=== PATIENT | male | born 1980 | race Caucasian/White ===

== ENCOUNTER 2020-05-15 03:57 | Observation (INO) | payer BC, SELFPAY ==
[2020-05-15] VITALS (15 sets, daily range): BP systolic 113–178; BP diastolic 49–86; PULSE 46–88; RESP 14–18; TEMP 36.4–37; O2SAT 94–100; BMI 25.8
--- NOTE | 2020-05-15 04:47 | CTR_ITS ---
PROCEDURE INFORMATION: Exam: CT Abdomen And Pelvis Without Contrast Exam date and time: 05/15/2020 4:58 AM Age: 39 years old Clinical indication: Abdominal pain; Flank; Right; Additional info: R flank pain TECHNIQUE: Imaging protocol: Computed tomography of the abdomen and pelvis without contrast. Radiation optimization: All CT scans at this facility use at least one of these dose optimization techniques: automated exposure control; mA and/or kV adjustment per patient size (includes targeted exams where dose is matched to clinical indication); or iterative reconstruction. COMPARISON: No relevant prior studies available. RADIATION DOSE METRICS: Total DLP (mGy-cm): 1142.93 FINDINGS: Liver: Normal. No mass. Gallbladder and bile ducts: Normal. No calcified stones. No ductal dilation. Pancreas: Normal. No ductal dilation. Spleen: Normal. No splenomegaly. Adrenals: Normal. No mass. Kidneys and ureters: There are 2 nonobstructing right renal calculi present, the largest measuring 3.5 mm. There is mild ureterectasis present on the right. Subtle haziness seen along the serosal margin of the right ureter as well compatible with mild inflammatory changes. There is no evidence of obstructing ureteral calculus. However, there is a punctate 1.9 mm calculus present in the dependent portion of the bladder compatible with a recently passed ureteral calculus. Stomach and bowel: Fluid-filled nondilated loops of small bowel could represent mild ileus. Appendix: The appendix is abnormally enlarged measuring 12.1 mm in diameter. There is some thickening of the appendiceal wall present as well. Minimal fat stranding is seen within the appendiceal mesentery. These findings could represent appendicitis. However the appendix is gas-filled, finding often suggesting a benign appendix. The appendix is retrocecal. Intraperitoneal space: Unremarkable. No free air. No significant fluid collection. Vasculature: Unremarkable. No abdominal aortic aneurysm. Lymph nodes: Unremarkable. No enlarged lymph nodes. Bladder: See Kidneys and ureters finding. Reproductive: Unremarkable as visualized. Bones/joints: Unremarkable. No acute fracture. Soft tissues: Unremarkable. CT/CT kidney stone [id number] IMPRESSION: 1. There is mild right ureterectasis and some haziness seen along the right ureter suggesting mild inflammatory changes. There is no evidence for obstructing right ureteral calculus however, there is a 1.9 mm calculus present in the dependent portion bladder possibly representing a recently passed ureteral calculus. 2. The appendix is in a retrocecal location and appears abnormally dilated measuring up to 12.1 mm in diameter. There is some mild wall thickening seen within the appendix. Mild thickening of the adjacent lateral conal fascia and some haziness within the appendiceal mesentery is present. These findings could represent mild appendicitis. However, the appendix is gas-filled, finding that often suggests a benign appendix. Clinical correlation is suggested. Radiation Dose CTDIVOL = (mGy): DLP = 1142.93 (mGy-cm)
[2020-05-15 05:30] LABS: Add Urine Microscopic? YES; Bilirubin Urine Neg (NEGATIVE); Blood Urine 3+ (Negative); Glucose Urine UA Norm (Normal); Ketones Urine 1+ (Negative); Leukocyte Esterase Urine 2+ (Negative); Nitrate Urine Negative (Negative); Protein Urine Trace (Negative); Specific Gravity, Urine 1.015 (1.005-1.030); Urine Color Yellow (Yellow); Urobilinogen Urine Norm (Negative); pH Urine 5 (5-7)
--- NOTE | 2020-05-15 05:33 | ED_ITS ---
HPI - Back Pain/Injury General: Chief Complaint: Back Pain/Injury Stated Complaint: KIDNEY STONE Time Seen by Provider: 05/15/20 04:18 History of Present Illness: HPI Narrative: 39-year-old male with a history of kidney stone. He presents with acute onset right flank pain a couple of days ago. He states that his pain is been intermittent. He experienced pain on Sunday, followed by a sensation of passing a stone with relief in his symptoms. The same thing happened , and again this morning. His pain was most severe this morning with 3 episodes of vomiting before his pain began to improve. Currently, his pain is significantly improved. He is not had a fever. He has had no diarrhea. MD elicited complaint: back pain Pertinent past history: other Onset (ago): day(s) Timing: intermittent Severity: severe Similar Symptoms Previously: Yes Quality: stabbing and aching Location: right flank Radiation: none Exacerbating factors: none Relieving factors: none Associated symptoms: Reports abdominal pain, nausea and vomiting; Deny dysuria, fever(s), hematuria or urinary frequency Review of Systems Const: Denies: fever(s) Eyes: Denies: change in vision or blurry vision ENMT: Denies: swelling of lips/tongue Card: Denies: chest pain, palpitations or irregular heart rhythm Resp: Denies: dyspnea, productive cough, non-productive cough or wheezing GI: Reports: abdominal pain, nausea and vomiting : Denies: difficulty urinating, dysuria or hematuria Musc: Reports: back pain; Denies: neck pain Skin/Breast: Denies: rash, pruritus or erythema Neuro: Denies: headache(s), dizziness or vertigo Psych: Denies: anxiety Physical Exam Const: GENERAL APPEARANCE: well developed ORIENTATION/CONSCIOUSNESS: Yes oriented to person, Yes oriented to place and Yes oriented to time HENMT: COMMON NORMALS: normocephalic, external ears normal and Normal external nose present HEAD & SCALP: normocephalic FACE & SINUS: normal facial exam NOSE: Normal external nose present and No nasal discharge present EXTERNAL EAR: Yes external ears normal Eye: COMMON NORMALS: Equal, round and reactive pupils present, EOMs intact bilaterally and conjunctivae normal EYELID: eyelids normal CONJUNCTIVA: Yes conjunctivae normal PUPIL: Yes Equal, round and reactive pupils present Neck/C-Spine: GENERAL: No tracheal deviation Chest: COMMONS NORMALS: normal inspection of the chest CHEST: No tenderness Resp: COMMON NORMALS: clear to auscultation bilaterally EFFORT & INSPECTION: No tachypneic, No respiratory distress, No retractions, No uses accessory muscles and No tracheal deviation AUSCULTATION: clear to auscultation bilaterally, no rhonchi, no wheezes and lung sounds not diminished Cardio: COMMON NORMALS: regular rate and regular rhythm RATE: regular rate RHYTHM: regular rhythm HEART SOUNDS: no murmurs PERIPHERAL PULSES: radial pulses present GI: INSPECTION: No abdominal distension AUSCULTATION: No Hyperactive bowel sounds present and No Hypoactive bowel sounds present PALPATION: No Guarding due to palpation present (GI) and No Rigid due to palpation PERCUSSION: no dullness to percussion and no tympanic to percussion : BLADDER/KIDNEY EXAM: Yes CVA tenderness on the right Back/Pelvis: GENERAL BACK: Yes CVA tenderness Neuro: SENSORIUM/ORIENTATION: Yes oriented to person, Yes oriented to place and Yes oriented to time Psych: COMMON NORMALS: mental status grossly normal Skin: COMMON NORMALS: no rashes or lesions noted GENERAL SKIN EXAM: no rashes or lesions noted Course Vital Signs: Vital signs: Vital Signs Temperature 97.8 F 05/15/20 04:01 Pulse Rate 46 L 05/15/20 05:28 Respiratory Rate 14 05/15/20 05:28 Blood Pressure 120/84 05/15/20 05:28 Pulse Oximetry 99 05/15/20 05:28 MDM - Back Pain/Injury MDM Narrative: Medical decision making narrative: 39-year-old with right flank pain for 3 days. Relief on arrival to his room. Urinalysis performed first shows greater than 100 RBCs, but also greater than 100 WBCs. 2+ leukocyte esterase. CT scan reveals a 1.9 mm stone in his bladder with no obstructive uropathy. Interestingly, he also has a 12 mm dilated appendix with periappendiceal inflammation present. He has inflammation around his kidney on the right as well. This patient has both pyelonephritis and appendicitis as well as a stone in his bladder. Consulted surgery, the plan is to do an appendectomy this morning, he is asking for hospitalist consultation to manage pyelonephritis. Hospitalist notified. He was at first given Rocephin here. Now he is given Zosyn to treat both. Lab Data: Labs: Lab Results 05/15/20 Range/Units 04:15 Urine Color Yellow (Yellow) Urine Appearance Sl cloudy A (CLEAR) Urine pH 5 (5-7) Ur Specific Gravit y 1.015 (1.005-1.030) Urine Protein Trace (Negative) Urine Glucose (UA) Norm (Normal) Urine Ketones 1+ H (Negative) Urine Blood 3+ H (Negative) Urine Nitrate Negative (Negative) Urine Bilirubin Neg (NEGATIVE) Urine Urobilinogen Norm (Negative) mg/dL Ur Leukocyte Amparo ase 2+ H (Negative) Urine RBC >100 H (0-2) /hpf Urine WBC >100 H (0-5) /hpf Ur Squamous Epith Cells 5-10 H (0-5) Amorphous Sediment 2+ Urine Bacteria 2+ H (NONE) Discharge Plan Discharge Patient Disposition: Admitted As Inpatient Clinical Impression: Acute pyelonephritis, History of nephrolithiasis Acute appendicitis Qualifiers: Acute appendicitis type: with localized peritonitis Appendicitis gangrene presence: without gangrene Appendicitis perforation presence: without perforati on Appendicitis abscess presence: without abscess Qualified Code(s): K35.30 - Acute appendicitis with localized peritonitis, without perforation or gangrene Condition: Stable Referrals: Dylan Lobato FNP [Primary Care Provider] - Coding Level of Care Code ED Clinical Tech for g Fwd Exam Comprehensive
[2020-05-15 05:34] LABS: Add Urine Culture? Yes; Amorphous Sediment Urine 2+; Bacteria Urine 2+; RBC Urine >100 /hpf (0-2); WBC Urine >100 /hpf (0-5)
[2020-05-15] MEDS: sodium chloride 0.9% 1,000 ML 999 ML IV (05:45)
[2020-05-15] MEDS: cefTRIAXone 1,000 MG in sodium chloride 0.9% (plus) 50 ML 100 MG IV (05:45)
[2020-05-15 06:42] LABS: Basophils % 0.4 %; Eosinophils % 0.3 %; Hematocrit 41.1 % (42.0-52.0); Hemoglobin 13.3 g/dL (11.7-16.6); Lymphocytes # 1.3 10^3/uL (0.8-4.8); Lymphocytes % 12.4 %; Mean Corpuscular HGB Conc 32.4 g/dL (30.0-36.0); Mean Corpuscular Hemoglobin 29.5 pg (28.0-34.0); Mean Corpuscular Volume 91.1 fL (80-94); Mean Platelet Volume 10.8 fL (7.4-10.4); Monocytes # 0.9 10^3/uL (0.2-0.9); Monocytes % 8.4 %; Neutrophils # 8.18 10^3/uL (1.8-7.7); Neutrophils % 78.3 %; Nucleated Red Blood Cells % 0 %; Platelet Count 182 10^3/cmm (130-400); Red Blood Count 4.51 10^6/uL (4.1-5.3); Red Cell Distribution Width 12.3 % (12.1-15.1); White Blood Count 10.4 10^3/uL (4.0-10.0)
--- NOTE | 2020-05-15 06:52 | PM.HP ---
Providers/Chief Complaint Primary Care Provider: LIU Downs Chief Complaint: KIDNEY STONE History of Present Illness Chief Complaint: Abdominal pain History of present illness: Mr Ronal Rojas is a 39 year old male presents to the emergency department with right flank and suprapubic pain patient has been experiencing pain since last Sunday thinking that it is another stone which she has been having frequent episodes of passing stones, patient reports nausea and vomiting but no fevers chills or change in bowel habits, and he reports the change in urination has been chronic for him due to the history of chronic kidney stones. Patient was further evaluated in the emergency department and was found to have leukocytosis and a CT scan that demonstrated acute appendicitis apart from inflammatory changes towards the right ureter. CT scan of the abdomen and pelvis showed; FINDINGS: Liver: Normal. No mass. Gallbladder and bile ducts: Normal. No calcified stones. No ductal dilation. Pancreas: Normal. No ductal dilation. Spleen: Normal. No splenomegaly. Adrenals: Normal. No mass. Kidneys and ureters: There are 2 nonobstructing right renal calculi present, the largest measuring 3.5 mm. There is mild ureterectasis present on the right. Subtle haziness seen along the serosal margin of the right ureter as well compatible with mild inflammatory changes. There is no evidence of obstructing ureteral calculus. However, there is a punctate 1.9 mm calculus present in the dependent portion of the bladder compatible with a recently passed ureteral calculus. Stomach and bowel: Fluid-filled nondilated loops of small bowel could represent mild ileus. Appendix: The appendix is abnormally enlarged measuring 12.1 mm in diameter. There is some thickening of the appendiceal wall present as well. Minimal fat stranding is seen within the appendiceal mesentery. These findings could represent appendicitis. However the appendix is gas-filled, finding often suggesting a benign appendix. The appendix is retrocecal. Intraperitoneal space: Unremarkable. No free air. No significant fluid collection. Vasculature: Unremarkable. No abdominal aortic aneurysm. Lymph nodes: Unremarkable. No enlarged lymph nodes. Bladder: See Kidneys and ureters finding. Reproductive: Unremarkable as visualized. Bones/joints: Unremarkable. No acute fracture. Soft tissues: Unremarkable. CT/CT kidney stone [id number] IMPRESSION: 1. There is mild right ureterectasis and some haziness seen along the right ureter suggesting mild inflammatory changes. There is no evidence for obstructing right ureteral calculus however, there is a 1.9 mm calculus present in the dependent portion bladder possibly representing a recently passed ureteral calculus. 2. The appendix is in a retrocecal location and appears abnormally dilated measuring up to 12.1 mm in diameter. There is some mild wall thickening seen within the appendix. Mild thickening of the adjacent lateral conal fascia and some haziness within the appendiceal mesentery is present. These findings could represent mild appendicitis. However, the appendix is gas-filled, finding that often suggests a benign appendix. Clinical correlation is suggested. General surgery was consulted for further evaluation and potential intervention Review of Systems General: Reports: 10 or more systems reviewed and unremarkable except in HPI and below Medications/Allergies Home Medications Medication Instructions Recorded Confirmed Last Taken Type sumatriptan succinate 100 mg tablet See Rx Instructions PO .COMPLEX 11/07/19 Unknown Rx #60 tab Allergies Allergy/AdvReac Type Severity Reaction Status Date / Time No Known Allergies Allergy Verified 05/15/20 07:21 Vitals/I&O/Wt Last Vital Signs Temp 97.8 F 05/15/20 04:01 Pulse 46 L 05/15/20 05:28 Resp 14 05/15/20 05:28 BP 120/84 05/15/20 05:28 Pulse Ox 99 05/15/20 05:28 Weight last 48 hrs Weight 175 lb Physical Exam Narrative: EXAM NARRATIVE: Patient is conscious alert oriented X3 BMI 26 Head and neck examination PERRLA no masses no cervical lymphadenopathy no jaundice Cardiac examination audible S1-S2 no murmurs no gallops no arrhythmias Chest is clear bilateral,abscence of Rhonchi or wheezes,no surgical emphysema Abdomen mild tenderess over the right lower quadrant nondistended soft no organomegaly guarding or rigidity/no signs of peritonitis Extremities no cyanosis no clubbing no edema Data : 05/15/20 06:34 05/15/20 06:34 A&P Assessment and plan (1) Acute appendicitis: After thorough history physical examination and reviewing the chart and images with my personal interpretion, I counseled the patient for laparoscopic appendectomy possible open. Indications, risks, benefits and alternatives were all discussed with the patient and did agree to proceed. Rationale was carefully and clearly discussed with the patient.Appropriate informed consent have been reviewed and signed Status: Acute Qualifiers: Acute appendicitis type: with localized peritonitis Appendicitis abscess presence: without abscess Appendicitis gangrene presence: without gangrene Appendicitis perforation presence: without perforation Qualified Code(s): K35.30 - Acute appendicitis with localized peritonitis, without perforation or gangrene (2) Acute pyelonephritis: Will defer to management of pyelonephritis to the hospitalist service Status: Acute Attestations Medical Necessity Statement*: Observation Time Spent in Patient Care: (>than 50% of time spent in counselling and/or direct pt care on unit). Coding Level of Care Code Acute Order Builder for [facility] Fwd Diagnoses Acute appendicitis K35.30 Acute appendicitis type: with localized peritonitis Appendicitis abscess presence: without abscess Appendicitis gangrene presence: without gangrene Appendicitis perforation presence: without perforation Acute pyelonephritis N10
[2020-05-15] MEDS: piperacillin-tazobactam 3.375 GM in sodium chloride 0.9% (plus) 50 ML IV ×3 (06:58→21:42)
[2020-05-15 07:04] LABS: Alanine Aminotransferase 11 U/L (0-41); Albumin Level 4.3 g/dL (3.5-5.2); Alkaline Phosphatase 61 IU/L (40-130); Anion Gap 13.4 (5-19); Aspartate Amino Transferase 13 U/L (0-40); Blood Urea Nitrogen 12 mg/dL (6-20); C Reactive Protein 76.9 mg/L (0.0-4.9); Calcium 8.9 mg/dL (8.5-10.5); Carbon Dioxide 27 mmol/L (22-29); Chloride 104 mmol/L (98-107); Globulin 2.7 g/dL (1.3-4.6); Glomerular Filtration Rate 82.8 mL/min (90-130); Glucose 101 mg/dL (65-115); Lipase 12 U/L (13-60); Osmolality Calculated 286 mOsm/kg (285-295); Potassium 4.4 mmol/L (3.5-5.1); Sodium 140 mmol/L (136-145); Total Bilirubin 0.9 mg/dL (0.15-1.2)
--- NOTE | 2020-05-15 07:05 | PC.NURSE ---
Received report assumed care. No acute distress. No changes noted from report. Rx and fluids infusing. at bedside.
--- NOTE | 2020-05-15 08:39 | P.ANESASSM_ITS ---
Pre-Anesthetic Assessment Pre-Anesthetic Assessment: Height/Weight: Height 1.75 m Weight 79.379 kg Temp Pulse Resp BP Pulse Ox 98.3 F 57 L 18 113/49 100 05/15/20 07:03 05/15/20 07:03 05/15/20 07:03 05/15/20 07:03 05/15/20 07:03 Proposed Procedure: Operation Date: 05/15/20 10:00 Proposed Procedures p Appendectomy(Not Applicable) - Magnus Duarte MD Was Beta Walt taken within 24 hours: N/A Social: Social History: No alcohol and No tobacco Exam: Pre-Anes Outpt Exam: alert, oriented x 3, clear to auscultation bilaterally and regular rate & rhythm Airway: Submandibular: WNL Cervical ROM: WNL MP: 2 Dentition: Full History/ROS: No significant history except as noted Pulmonary: Pulmonary: None reported CV/HEM: CV/HEM: None reported : : None reported Hepatic: Hepatic: None reported GI: GI: None reported Metabolic: Metabolic: None reported Musc/skel: Musc/skel: None reported Neuropsych: Neuropsych: None reported Anesthetic Plan: ASA status: 1 Anesthesia: General Other: Mod RSI Risk of > 500 ml blood loss (7ml/kg in children): No Data Anesthesia CBC & Chem 7: 05/15/20 06:34 05/15/20 06:34 Other Labs: Laboratory Results - last 48 hr 05/15/20 05/15/20 05/15/20 04:15 06:34 06:34 WBC 10.4 H RBC 4.51 Hgb 13.3 Hct 41.1 L MCV 91.1 MCH 29.5 MCHC 32.4 RDW 12.3 Plt Count 182 MPV 10.8 H Neut % (Auto) 78.3 Lymph % (Auto) 12.4 [place] % (Auto) 8.4 Eos % (Auto) 0.3 Baso % (Auto) 0.4 Neut # (Auto) 8.18 H Lymph # (Auto) 1.3 [place] # (Auto) 0.9 Eos # (Auto) 0.0 Baso # (Auto) 0.0 Nucleated RBC % (auto) 0 Nucleated RBCs # 0.0 Sodium 140 Potassium 4.4 Chloride 104 Carbon Dioxide 27 Anion Gap 13.4 BUN 12 Creatinine 1.0 GFR Calculation 82.8 L Glucose 101 Calculated Osmolality 286 Calcium 8.9 Total Bilirubin 0.9 AST 13 ALT 11 Alkaline Phosphatase 61 C-Reactive Protein 76.9 H Total Protein 7.0 Albumin 4.3 Globulin 2.7 Lipase 12 L Urine Color Yellow Urine Appearance Sl cloudy A Urine pH 5 Ur Specific [place] 1.015 Urine Protein Trace Urine Glucose (UA) Norm Urine Ketones 1+ H Urine Blood 3+ H Urine Nitrate Negative Urine Bilirubin Neg Urine Urobilinogen Norm Ur Leukocyte Esterase 2+ H Urine RBC >100 H Urine WBC >100 H Ur Squamous Epith Cells 5-10 H Amorphous Sediment 2+ Urine Bacteria 2+ H Cardiac Studies: No Data to Display
[2020-05-15] MEDS: lidocaine 2% INJ 20 mL INJECTION (10:19)
--- NOTE | 2020-05-15 11:04 | PM.OP ---
Operative Report Date of procedure: May 15, 2020 Pre-op Diagnosis: Acute appendicitis Post-op diagnosis: same Post-op Findings: Acute retrocecal intensely inflamed appendicitis without perforation Procedure Done: Laparoscopic appendectomy Specimens removed/disposition: Appendix Surgeon: Magnus Duarte Supervisor Print Line: Surgical mario Farr nurse Chani Anesthesia: General (GETA) Estimated blood loss (mL): 25 Condition: stable Disposition: observation Brief History: This is a pleasant 39 years old gentleman with history of acute appendicitis After thorough history physical examination and reviewing the chart and images with my personal interpretion, I counseled the patient for laparoscopic appendectomy possible open. Indications, risks, benefits and alternatives were all discussed with the patient and did agree to proceed. Rationale was carefully and clearly discussed with the patient.Appropriate informed consent have been reviewed and signed Procedure: Patient after being identified in the holding area and asked to void urine, and informed consent per chart ,patient was then taken back to the OR placed in supine position got intubated by anesthesia left arm was tucked tucked ,Timeout was done verifying the patient's name/date of /planned procedure and destination after the procedure, all were in agreement., preoperative antibiotics administered per protocol. prep and drape of the abdomen was done under the usual sterile technique. Started by longitudinal skin incision supraumbilical using a Roblero trocar technique safe entry to the abdominal cavity was achieved verified by using 10 mm zero degree laparoscopy, switched to a 30? scope under direct visualization a suprapubic 5 mm trocar was inserted followed by another 5 mm trocar inserted in the left lower quadrant, I was able to position the patient in an T Huang and left side down, dissection of the prececal acutely inflamed appendix there was some adhesions towards the lateral pelvic wall that was taken down by sharp and blunt dissection, attention was deviated to the healthy base of the appendix where I had to switch the camera to 5 mm 30? scope got introduced through the left lower quadrant and through the Roblero trocar under direct visualization a GI stapler 45 mm blue load was applied at the healthy part of the base of the appendix, and an Endoloop PDS was applied onto the mesoappendix for control , the appendix was then retrieved in an Endo Catch bag, final survey was done of the abdomen and pelvis , irrigation with warm saline, and suction was obtained, were mercury fluid like in the pelvis due to reaction from the inflamed appendix. 5 mm clips were applied onto the mesoappendix as well as the appendectomy staple line and a right lateral pelvic wall for minimal oozing. Final look laparoscopy was done showing no other abnormalities or injuries, all trocars were taken out under direct visualization after the supraumblical trocar site was closed by 0 Vicryl sutures under direct vision using fascial closure device ,followed by skin closure using 4-0 Monocryl of all trocar site incisions. infiltration of local lidocaine 2% was done to all incision sites.Dry dressing was applied. Count was completed at the end of the procedure for [place] , sponges and instruments Patient tolerated the procedure well and was transferred to the recovery area after extubation. I was present for the whole entire procedure
[2020-05-15] MEDS: fentaNYL 50 mcg/mL INJ 2mL IVP ×2 (11:25→11:30)
--- NOTE | 2020-05-15 12:18 | PM.PACU ---
PACU note PACU note: VSS, good pain control. Post-Anesthesia Exam: awake Disposition: back to floor
[2020-05-15] MEDS: HYDROcodone-acetaminophen 5-325 mg Tablet 1 TAB PO ×2 (12:26→20:15)
[2020-05-15] MEDS: sodium chloride 0.9% 1,000 ML 100 ML IV (13:54)
[2020-05-15] MEDS: morphine 4 mg/mL SDV 1 mL 2 MG IVP (16:01)
--- NOTE | 2020-05-15 16:44 | P.PN_ITS ---
Vitals/I&O/Wt Last Vital Signs Temp 97.6 F 05/15/20 11:35 Pulse 60 05/15/20 11:35 Resp 18 05/15/20 16:01 BP 145/84 05/15/20 11:35 Pulse Ox 99 05/15/20 11:35 05/15/20 05/15/20 05/15/20 06:59 14:59 22:59 Intake Total 0 / 0 Output Total 320 / 320 200 / 520 Balance -320 / -320 -200 / -520 Weight last 48 hrs Weight 79.379 kg Data : 05/15/20 06:34 05/15/20 06:34 Coding Level of Care Code Acute Batch Tank Controller for [facility]
--- NOTE | 2020-05-15 17:07 | PM.CONSULT ---
Providers/Reason For Consult Consulting Physican/Specialty*: Indira Aviles MD /Internal medicine Reason for Consult*: Possible pyelonephritis. Attending Physician: Magnus Duarte MD Primary Care Provider: LIU Downs History of Present Illness History of Present Illness Ronal Rojas is a 39 year old male with past medical history of migraine and nephrolithiasis who presented to the ER with chief complaint of abdominal pain and nausea vomiting. He was found to have evidence of acute appendicitis on CAT scan for which he was taken to the OR and is now status post laparoscopic appendectomy.. There was also noted to be mild right ureterectasis and some haziness seen along the right ureter suggesting mild inflammatory changes. There is no evidence for obstructing right ureteral calculus however, there is a 1.9 mm calculus present in the dependent portion bladder possibly representing a recently passed ureteral calculus. Patient otherwise denies any symptoms of dysuria , frequency, fever. There is no CVA tenderness on exam. Patient is seen postoperatively. He has remained afebrile since admission. Currently on empiric treatment with IV Zosyn. Review of Systems General: Reports: 10 or more systems reviewed and unremarkable except in HPI and below Const: Denies: fever(s), chills or body aches Eyes: Denies: change in vision, blurry vision or photophobia ENMT: Reports: hoarseness; Denies: throat pain, enlarged tonsils, odynophagia or nasal congestion Card: Denies: chest pain, palpitations, irregular heart rhythm, edema, swelling of feet/ankles, lightheadedness, pre-syncope, dyspnea on exertion or orthopnea Resp: Denies: dyspnea, productive cough, non-productive cough, wheezing, stridor, pain on inspiration, change in phlegm color, hemoptysis or chest congestion GI: Denies: abdominal pain, nausea, vomiting, hematemesis, coffee ground emesis, dysphagia, heartburn, diarrhea, constipation, GI cramping, change in stool character, hematochezia or melena : Denies: flank pain, dysuria, urinary frequency, urinary urgency, urinary hesitancy or hematuria Musc: Denies: neck pain, back pain, extremity pain, joint swelling, joint warmth or deformity Neuro: Denies: headache(s), numbness in extremities, weakness in extremities, sensory changes, difficulty walking, frequent falls, dizziness, vertigo, behavioral changes, Slurred speech present or seizure-like activity Psych: Denies: anxiety, depression, suicidal ideation or homicidal ideation Endo: Denies: polyuria, polydipsia, tired all the time, cold intolerance or hot flashes Fredrick/Lymph: Denies: easy bruising or easy bleeding Meds/Allergies Home Medications and Allergies Home Medications Medication Instructions Recorded Confirmed Last Taken Type sumatriptan succinate 100 mg tablet See Rx Instructions PO .COMPLEX 11/07/19 05/16/20 Unknown Rx #60 tab multivitamin [Multiple Vitamins] 1 tab PO DAILY 05/16/20 05/16/20 Unknown History Allergies Allergy/AdvReac Type Severity Reaction Status Date / Time No Known Allergies Allergy Verified 05/16/20 09:51 Current Medications Current Medications Generic Name Dose Route Start Last Admin Trade Name Freq PRN Reason Stop Dose Admin Hydrocodone Bitart/Acetaminophen 1 tab 05/15/20 11:07 05/16/20 13:37 [place] 5-325 Mg PO 1 tab Q6H PRN Administration MODERATE PAIN Sodium Chloride 1,000 mls @ 100 mls/hr 05/15/20 11:15 05/16/20 09:15 Sodium Chloride 0.9% IV 100 mls/hr .Q10H HARDIK Administration Piperacillin Sod/Tazobactam 50 mls @ 12.5 mls/hr 05/15/20 14:00 05/16/20 13:37 Sod 3.375 gm/ Sodium Chloride IV 12.5 mls/hr Q8H HARDIK Administration Protocol Morphine Sulfate 2 - 4 mg 05/15/20 17:36 05/16/20 03:01 Morphine IVP 2 mg Q2H PRN Administration SEVERE PAIN Ondansetron HCl 4 mg 05/15/20 11:07 05/16/20 13:36 Zofran IVP 4 mg Q4H PRN Administration NAUSEA AND VOMITING Simethicone 80 mg 05/16/20 05:41 05/16/20 05:51 Mylicon Tab PO 80 mg QID PRN Administration FLATULENCE Vitals/I&O/Wt Last Vital Signs Temp 98.3 F 05/16/20 15:32 Pulse 62 05/16/20 15:32 Resp 18 05/16/20 15:32 BP 154/79 05/16/20 15:32 Pulse Ox 97 05/16/20 15:32 05/16/20 05/16/20 05/16/20 06:59 14:59 22:59 Intake Total 1450 / 1840 921.667 / 921.667 Output Total 905 / 3155 1000 / 1000 500 / 1500 Balance 545 / -1315 -78.333 / -78.333 -500 / -578.333 Weight last 48 hrs Weight 79.379 kg Physical Exam Narrative: EXAM NARRATIVE: GEN: Awake, alert and oriented, no acute distress CVS: S1S2 N RS: CTA B/L Abd: Soft, mildly distended, no tenderness 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 Micro: Micro: Microbiology 05/15/20 04:15 Urine Culture - Pr eliminary Urine,Clean Catch Imaging^: CT Abd/Pel: Radiologist's impression: CT/CT kidney stone [id number] IMPRESSION: 1. There is mild right ureterectasis and some haziness seen along the right ureter suggesting mild inflammatory changes. There is no evidence for obstructing right ureteral calculus however, there is a 1.9 mm calculus present in the dependent portion bladder possibly representing a recently passed ureteral calculus. 2. The appendix is in a retrocecal location and appears abnormally dilated measuring up to 12.1 mm in diameter. There is some mild wall thickening seen within the appendix. Mild thickening of the adjacent lateral conal fascia and some haziness within the appendiceal mesentery is present. These findings could represent mild appendicitis. However, the appendix is gas-filled, finding that often suggests a benign appendix. Clinical correlation is suggested. A&P Additional A&P Information 39-year-old male with past medical history of migraine and nephrolithiasis currently presenting to the hospital with abdominal pain nausea and vomiting. Found to have evidence of acute appendicitis and status post laparoscopic appendectomy. Incidental note made of right-sided uric stasis and surrounding mild inflammation with small bladder stone, which appears to be consistent with a recently passed stone. Clinically patient does not have any acute signs or symptoms of pyelonephritis. He does not have CVA tenderness. He has been afebrile since his admission here. Does not have any urinary symptoms of urgency, burning at this present time. There is an alternate explanation for his symptoms by way of acute appendicitis which is now been surgically treated. Clinically does not appear to have pyelonephritis, however given that his UA is showing WBCs and positive leuk esterase, it would be reasonable to treat him with a 5 to 7-day course of empiric antibiotics if urine cultures remain negative. Currently Zosyn is an appropriate choice which will cover for both urinary and abdominal sources of infection. Upon discharge this may be transitioned to oral fluoroquinolones, either levofloxacin 750 mg p.o. daily or Cipro 500 mg twice daily. Recommend outpatient follow-up with urology for nephrolithiasis Coding Level of Care Code Acute Metal Buffer for Tiffanie Romero
[2020-05-15] MEDS: ondansetron 2 mg/ML SDV 2 mL 4 MG IVP ×2 (17:57→21:52)
--- NOTE | 2020-05-15 18:18 | PC.NURSE ---
SHIFT SUMMARY PATIENT HAS COMPLAINED OF ABDOMINAL PAIN SINCE ARRIVING TO THE FLOOR FROM SURGERY. HE HAS AMBULATED SEVERAL TIMES. PATIENT HAD ONE BOUT OF EMESIS. DR. PANDYA INCREASED PAIN MEDICATION AND ADDED OFFIRMEV. PATIENT CURRENTLY SITTING ON THE EDGE OF THE BED.
[2020-05-15] MEDS: morphine 4 mg/mL SDV 1 mL IVP (21:53)
[2020-05-16] VITALS (8 sets, daily range): BP systolic 140–168; BP diastolic 66–95; PULSE 47–62; RESP 17–20; TEMP 36.7–37.1; O2SAT 97–99
[2020-05-16] MEDS: morphine 4 mg/mL SDV 1 mL IVP ×2 (00:31→03:01)
[2020-05-16] MEDS: sodium chloride 0.9% 1,000 ML 100 ML IV ×3 (00:32→19:43)
[2020-05-16] MEDS: ondansetron 2 mg/ML SDV 2 mL 4 MG IVP ×3 (02:31→21:03)
[2020-05-16 04:56] LABS: Basophils % 0.2 %; Eosinophils % 0.1 %; Hematocrit 40.1 % (42.0-52.0); Hemoglobin 13.5 g/dL (11.7-16.6); Lymphocytes # 1.3 10^3/uL (0.8-4.8); Lymphocytes % 10.8 %; Mean Corpuscular HGB Conc 33.7 g/dL (30.0-36.0); Mean Corpuscular Hemoglobin 30.6 pg (28.0-34.0); Mean Corpuscular Volume 90.9 fL (80-94); Mean Platelet Volume 10.8 fL (7.4-10.4); Monocytes # 0.9 10^3/uL (0.2-0.9); Monocytes % 7.2 %; Neutrophils % 81.2 %; Nucleated Red Blood Cells % 0 %; Platelet Count 200 10^3/cmm (130-400); Red Blood Count 4.41 10^6/uL (4.1-5.3); Red Cell Distribution Width 12.4 % (12.1-15.1); White Blood Count 12.3 10^3/uL (4.0-10.0)
--- NOTE | 2020-05-16 05:08 | PC.NURSE ---
SHIFT SUMMARY Has been uncomfortable much of the night. Had c/o abd pain and nausea. Vomited after having po Hydrocodone for pain and says made him sick earlier in day as well. Received IV Morphine for pain with much better relief. Also has received Zofran for nausea and IV Tylenol for pain as well. c/o gas discomfort across upper abdomen and bloating.. Has not been able to pass any flatus. Has ambulated in [place] several times. Voiding per urinal. Has taken clear liquid diet. X3 stab incisions to medial umbilicus, medial lower and left lower abdomen all DECISION SUPPORT ANALYST with dermabond closure.
[2020-05-16 05:21] LABS: Anion Gap 14.3 (5-19); Blood Urea Nitrogen 8 mg/dL (6-20); Calcium 9.1 mg/dL (8.5-10.5); Carbon Dioxide 27 mmol/L (22-29); Chloride 100 mmol/L (98-107); Glomerular Filtration Rate 93.5 mL/min (90-130); Glucose 134 mg/dL (65-115); Osmolality Calculated 282 mOsm/kg (285-295); Potassium 4.3 mmol/L (3.5-5.1); Sodium 137 mmol/L (136-145)
[2020-05-16] MEDS: simethicone 80 mg Chew PO (05:51)
[2020-05-16] MEDS: piperacillin-tazobactam 3.375 GM in sodium chloride 0.9% (plus) 50 ML IV ×3 (05:51→21:28)
--- NOTE | 2020-05-16 06:46 | P.PN_ITS ---
Subjective Subjective: Interval history: Patient overall feels a whole lot better, still complaining of some abdominal discomfort but it eased up overnight He feels his bowels rumbling but did not pass gas yet Slight trend up in WBC count Vitals/I&O/Wt Last Vital Signs Temp 98.7 F 05/16/20 04:00 Pulse 50 L 05/16/20 04:00 Resp 17 05/16/20 04:00 BP 161/81 05/16/20 04:00 Pulse Ox 98 05/16/20 04:00 05/15/20 05/15/20 05/16/20 14:59 22:59 06:59 Intake Total 0 / 0 390 / 390 1450 / 1840 Output Total 320 / 320 1930 / 2250 905 / 3155 Balance -320 / -320 -1540 / -1860 545 / -1315 Weight last 48 hrs Weight 175 lb Physical Exam Narrative: EXAM NARRATIVE: Patient is conscious alert oriented X3 BMI 26 Head and neck examination PERRLA no masses no cervical lymphadenopathy no jaundice Cardiac examination audible S1-S2 no murmurs no gallops no arrhythmias Chest is clear bilateral,abscence of Rhonchi or wheezes,no surgical emphysema Abdomen nontender except mildly at the incision sites nondistended soft no organomegaly guarding or rigidity/no signs of peritonitis Bowel sounds are positive and hyperactive Extremities no cyanosis no clubbing no edema Data : 05/16/20 04:31 05/16/20 04:31 A&P Assessment and plan (1) Acute appendicitis: Status post uneventful laparoscopic appendectomy 05/15/2020 Once patient starts passing gas will advance diet as tolerated We will consider discharge home at some point on Levaquin for 5 to 7 days with coordination with Dr. Aviles Encourage ambulation Assurance and education All questions have been answered and all concerns have been addressed to patient's satisfaction. Status: Resolved Qualifiers: Acute appendicitis type: with localized peritonitis Appendicitis abscess presence: without abscess Appendicitis gangrene presence: without gangrene Appendicitis perforation presence: without perforation Qualified Code(s): K35.30 - Acute appendicitis with localized peritonitis, without perforation or gangrene Attestations Medical Necessity Statement*: Observation status Time Spent in Patient Care: (>than 50% of time spent in counselling and/or direct pt care on unit) . Coding Level of Care Code Acute Facility Maintenance Supervisor for [facility] Fwd Diagnoses Acute appendicitis K35.30 Acute appendicitis type: with localized peritonitis Appendicitis abscess presence: without abscess Appendicitis gangrene presence: without gangrene Appendicitis perforation presence: without perforation
--- NOTE | 2020-05-16 12:29 | PC.CHAP ---
Pastoral Care Encounter/Spiritual Assessment Type of Contact [] Declined anglesmith helper visit [] Patient/Family/Request visit [] Outpatient visit [] Follow-up visit [] Physician referral [] Code/Alert [X] Routine visit [] Staff referral [] Actively dying [] Patient sleeping [] Family support [] [] Out of room [] Palliative care [] [] Receiving care in room [] Pre-surgical visit [] Trauma [] Long length of stay [] ICU visit [] Other: Relational/Emotional Strength [X] Patient feels connected with others/family/visitors/staff [] Distress [] Loneliness/isolation [] Abandonment Spirituality of Patient [X] Person of [place] [X] Attends Shinto of their [place] [X] Believes in Prayer [] Reads Bible or Muslim materials [] There are Spiritual issues to be addressed Municipal Clerk Interventions [X] Prayer [X] Active listening [] Non-anxious presence [] Spiritual/emotional support [] Crisis/trauma care [] Spiritual counseling [] Bereavement support [] Provided bereavement packet [] Provided Bible/devotional materials [] Provided toy/stuffed animal, coloring book to patient or family member [] Provided Communion [] Anointing/[place] [] Salvation [X] Completed spiritual assessment [] Other: Impact on Illness or Injury [] Angry [] Fearful [] Anxious [] Often cries [] Exhaustion [] Unable to work [] Unable to attend lutheran [] Unable to walk/stand [] Unable to read [] Unable to drive [] Unable to eat/drink [] Unable to sleep [] Unable to be with family [] Patient intubated [] Other: Summary: Pt shared the events leading to the hospitalization and knows that he has many holding him in prayer. He continues to be in some pain and will not be going home until the gastric issues resolve. Time spent with patient: 5 - 10 mins
[2020-05-16] MEDS: HYDROcodone-acetaminophen 5-325 mg Tablet 1 TAB PO ×2 (13:37→20:58)
--- NOTE | 2020-05-16 17:18 | P.PN_ITS ---
Subjective Subjective: Interval history: no new complaints, abdominal distension better, afebrile, no urinary symptoms Medications: Reviewed: Yes Vitals/I&O/Wt Last Vital Signs Temp 98.3 F 05/16/20 15:32 Pulse 62 05/16/20 15:32 Resp 18 05/16/20 15:32 BP 154/79 05/16/20 15:32 Pulse Ox 97 05/16/20 15:32 05/16/20 05/16/20 05/16/20 06:59 14:59 22:59 Intake Total 1450 / 1840 921.667 / 921.667 Output Total 905 / 3155 1000 / 1000 500 / 1500 Balance 545 / -1315 -78.333 / -78.333 -500 / -578.333 Weight last 48 hrs Weight 79.379 kg Physical Exam Narrative: EXAM NARRATIVE: GEN: Awake, alert and oriented, no acute distress CVS: S1S2 N RS: CTA B/L Abd: Soft, mildly distended, no tenderness 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 Incidental note made of right-sided uric stasis and surrounding mild inflammation with small bladder stone, which appears to be consistent with a recently passed stone. Clinically patient does not have any acute signs or symptoms of pyelonephritis. He does not have CVA tenderness. He has been afebrile since his admission here. Does not have any urinary symptoms of urgency, dysuria at this present time or prior to presentation. There is an alternate explanation for his symptoms by way of acute appendicitis which is now been surgically treated. Clinically does not appear to have pyelonephritis, however given that his UA is showing WBCs and positive leuk esterase, it would be reasonable to treat him with a 5 to 7-day course of empiric antibiotics for possible UTI. Currently Zosyn is an appropriate choice which will cover for both urinary and abdominal sources of infection. Upon discharge this may be transitioned to oral fluoroquinolones, either levofloxacin 750 mg p.o. daily or Cipro 500 mg twice daily. Recommend outpatient follow-up with urology for nephrolithiasis Thank you for consulting the medicine service and allowing us to assist in patient's care Attestations Medical Necessity Statement*: per admitting physician Coding Level of Care Code Acute Patternator for Tiffanie Romero
--- NOTE | 2020-05-16 17:58 | PC.NURSE ---
SHIFT SUMMARY PATIENT HAS AMBULATED MULTIPLE TIMES TODAY. PATIENT RECEIVED LAST DOSE OF PRN OFFIRMEV TODAY. PAIN MORE CONTROLLED TODAY THAN YESTERDAY. THIS NURSE ADMINISTERED ZOFRAN ALONG WITH HYDROCODONE AND PATIENT TOLERATED WELL. GOOD PO INTAKE AND GOOD URINE OUTPUT. HYPERACTIVE BOWEL SOUNDS BUT NEGATIVE FOR GAS.
[2020-05-17] VITALS: BP 125/80; PULSE 63; RESP 20; TEMP 37.2; O2SAT 97
[2020-05-17 04:00] VITALS: BP 138/87; PULSE 58; RESP 20; TEMP 36.7; O2SAT 98
[2020-05-17] MEDS: HYDROcodone-acetaminophen 5-325 mg Tablet 1 TAB PO (04:18)
[2020-05-17 04:30] LABS: Basophils % 0.4 %; Eosinophils % 0.4 %; Hematocrit 39.3 % (42.0-52.0); Hemoglobin 13.1 g/dL (11.7-16.6); Lymphocytes # 1.9 10^3/uL (0.8-4.8); Lymphocytes % 19.8 %; Mean Corpuscular HGB Conc 33.3 g/dL (30.0-36.0); Mean Corpuscular Hemoglobin 30.3 pg (28.0-34.0); Mean Corpuscular Volume 90.8 fL (80-94); Monocytes # 0.8 10^3/uL (0.2-0.9); Neutrophils # 6.88 10^3/uL (1.8-7.7); Neutrophils % 71.1 %; Nucleated Red Blood Cells % 0 %; Platelet Count 217 10^3/cmm (130-400); Red Blood Count 4.33 10^6/uL (4.1-5.3); Red Cell Distribution Width 12.4 % (12.1-15.1); White Blood Count 9.7 10^3/uL (4.0-10.0)
[2020-05-17 04:50] LABS: Anion Gap 12.8 (5-19); Blood Urea Nitrogen 6 mg/dL (6-20); Calcium 9.3 mg/dL (8.5-10.5); Carbon Dioxide 27 mmol/L (22-29); Chloride 102 mmol/L (98-107); Creatinine Clr Calc Pharmacy 128.7701; Glomerular Filtration Rate 107.1 mL/min (90-130); Glucose 102 mg/dL (65-115); Osmolality Calculated 282 mOsm/kg (285-295); Potassium 3.8 mmol/L (3.5-5.1); Sodium 138 mmol/L (136-145)
[2020-05-17] MEDS: piperacillin-tazobactam 3.375 GM in sodium chloride 0.9% (plus) 50 ML IV (05:28)
[2020-05-17] MEDS: sodium chloride 0.9% 1,000 ML 100 ML IV (05:28)
--- NOTE | 2020-05-17 06:11 | P.SS_ITS ---
Short Stay Summary Providers Date of Admit/Discharge: 05/17/20 Attending Provider: Magnus Duarte MD Primary Care Provider: LIU Downs Chief Complaint: KIDNEY STONE HPI History of Present Illness Mr. Ronal Rojas is a 39 year old male presents to the emergency department worsening abdominal pain was found to have an acute appendicitis. Patient was taken undergone uneventful laparoscopic appendectomy he did well yet he did have some trend in leukocytosis was kept another night for IV antibiotics and overall he has been performing well and tolerating p.o. intake and passing gas. Review of Systems General: Reports: 10 or more systems reviewed and unremarkable except in HPI and below Home Meds/Allergies Home Medications and Allergies Home Medications Medication Instructions Recorded Confirmed Type Multiple Vitamins 1 tab PO DAILY 05/16/20 05/16/20 History Allergies Allergy/AdvReac Type Severity Reaction Status Date / Time No Known Allergies Allergy Verified 05/17/20 06:12 Vitals/I&O/Wt Last Vital Signs Temp 98.0 F 05/17/20 04:00 Pulse 58 L 05/17/20 04:00 Resp 20 H 05/17/20 04:00 BP 138/87 05/17/20 04:00 Pulse Ox 98 05/17/20 04:00 05/16/20 05/16/20 05/17/20 14:59 22:59 06:59 Intake Total 921.667 / 833.093 2605 / 2211.667 1505 / 3716.667 Output Total 1000 / 1000 1120 / 2120 1575 / 3695 Balance -78.333 / -78.333 170 / 91.667 -70 / 21.667 Physical Exam Narrative: EXAM NARRATIVE: Patient is conscious alert oriented X3 BMI 26 Head and neck examination PERRLA no masses no cervical lymphadenopathy no jaundice Abdomen nontender nondistended soft no organomegaly guarding or rigidity/no signs of peritonitis Incisions are clean dry and intact Extremities no cyanosis no clubbing no edema Hospital Course Discharge Summary: This is a pleasant 39 years old gentleman undergone uneventful laparoscopic appendectomy after a diagnosis of acute appendicitis, patient also gives a history of chronic kidney stones that he did pass 1 to the bladder. Patient overall did well during hospitalization with a slight trend the leukocytosis that required another night in the hospital with IV antibiotic therapy. Continue to tolerate clear liquid diet and passing gas with trending down to leukocytosis within normal limits now. Hospitalist service on board for concern of history of pyelonephritis Will advance diet as tolerated and plan to discharge home today on Levaquin 750 mg p.o. for 1 week pain medication. SSS Data Data Completed and Pending: Completed Studies During Hospitalization Category Date Time Status CT kidney stone [id number] Urgent Cat Scan 05/15/20 04:47 Completed Pending at discharge Category Date Time Status ES surgery / GI i mages Routine Exams 05/15/20 08:51 Taken Stone Analysis Ro utine Lab 05/16/20 06:50 Received Urine Culture Sta t Lab 05/15/20 04:15 Results Pathology: Surgic al [PTH] Routine Pth 05/15/20 11:04 Ordered Diagnoses at Discharge Discharge Diagnosis (1) Acute appendicitis: Status: Resolved Problem details: Plan to discharge home today after advance diet as tolerated Qualifiers: Acute appendicitis type: with localized peritonitis Appendicitis abscess presence: without abscess Appendicitis gangrene presence: without gangrene Appendicitis perforation presence: without perforation Qualified Code(s): K35.30 - Acute appendicitis with localized peritonitis, without perforation or gangrene Discharge Plan Discharge Patient Disposition: Home Condition: Stable Prescriptions: New Levaquin 750 mg tablet 750 mg PO DAILY 7 Days RF: 0 [place] 5-325 mg tablet 1 tab PO Q6H PRN (Reason: pain) Qty: 28 RF: 0 Continued sumatriptan succinate [Imitrex] 100 mg tablet See Rx Instructions PO .COMPLEX Qty: 60 RF: 5 Multiple Vitamins Tablet 1 tab PO DAILY RF: 0 Discharge Orders: Discharge Order (Routine); Ordered 05/17/20 Ordered By: Magnus Duarte Referrals: Magnus Duarte MD [Physician] - (RTC in one week General Surgery Office ) Dylan Lobato FNP [Primary Care Provider] - Discharge Diet: Advance as tolerated Discharge Activity: Limit activity as instructed Activity Restrictions/Additional Instructions: 1. Patient can shower after 48 hours from surgery 2. Remove Dermabond 7 to 10 days after surgery, if there is a secondary dressing can take down after 48 hours. 3. Up and walking as tolerated 4. Do lift more than 5 pounds first 2 weeks after surgery and not more than 25 pounds 6 to 8 weeks after surgery. 5. Do not operate heavy machinery or drive while using pain medications. 6.Contact the office or return to the ER for worsening nausea vomiting fevers or chills, or noticing any redness around incision sites or discharge. Attestations Medical Necessity Statement*: Observation status and plan to discharge home today Time Spent in Patient Care*: less than 30 min Specific Discharge Activities: Specific discharge activities: educating patient Status at Discharge: Cognitive status at discharge: cognitively intact , Behavioral status at discharge: cooperative , Functional status at discharge: independent ambulation Overall status at discharge: patient is progressing back to baseline Quality Metrics Clinical Quality Measures: During this hospital stay, did patient experience: None Coding Level of Care Code Acute Diamond Merchant for [facility] Fwd Diagnoses Acute appendicitis K35.30 Acute appendicitis type: with localized peritonitis Appendicitis abscess presence: without abscess Appendicitis gangrene presence: without gangrene Appendicitis perforation presence: without perforation
[2020-05-17 07:55] VITALS: BP 132/72; PULSE 49; RESP 18; TEMP 36.7; O2SAT 98
--- NOTE | 2020-05-17 08:52 | PC.NURSE ---
Discharge instructions given to patient. Patient verbalized understanding of instructions. Patient's ride will be here about noon. Signed scripts for [place] and [place] given to patient.
[2020-05-17 11:12] VITALS: BP 132/72; PULSE 49; RESP 18; TEMP 36.7; O2SAT 98
--- NOTE | 2020-05-17 11:22 | P.PN_ITS ---
Subjective Subjective: Interval history: This morning patient is doing well, sitting up in bed, has no significant complaints, is wondering when he can go home, has a prescription at bedside, states that he is passing gas, has not had a bowel movement yet, no fevers, chills, no nausea, no vomiting, overall feels well, no chest pain, no shortness of breath Medications: Reviewed: Yes Vitals/I&O/Wt Last Vital Signs Temp 98.0 F 05/17/20 11:12 Pulse 49 L 05/17/20 11:12 Resp 18 05/17/20 11:12 BP 132/72 05/17/20 11:12 Pulse Ox 98 05/17/20 11:12 05/16/20 05/17/20 05/17/20 22:59 06:59 14:59 Intake Total 1290 / 2211.667 1505 / 3716.667 240 / 240 Output Total 1120 / 2120 1575 / 3695 650 / 650 Balance 170 / 91.667 -70 / 21.667 -410 / -410 Physical Exam Const: COMMON NORMALS: no acute distress and patient oriented x3 HENMT: COMMON NORMALS: normocephalic HEAD & SCALP: normocephalic Neck/C-Spine: COMMON NORMALS: no JVD Resp: COMMON NORMALS: normal respiratory effort, No retractions, No use of accessory muscles and clear to auscultation bilaterally AUSCULTATION: clear to auscultation bilaterally Cardio: COMMON NORMALS: no JVD, regular rate, regular rhythm, S1 normal heart sound present and S2 normal heart sound present RATE: regular rate RHYTHM: regular rhythm HEART SOUNDS: S1 normal heart sound present and S2 normal heart sound present GI: COMMON NORMALS: Normal to inspection, nondistended, normoactive bowel sounds present, Soft to palpation, non-tender, No hepatosplenomegaly present, no masses and no bruits PALPATION: Yes Soft to palpation and Yes No hepatosplenomegaly present Extremity: COMMON NORMALS: capillary refill normal, no clubbing, cyanosis or edema, no calf tenderness and no pedal edema Neuro: COMMON NORMALS: patient oriented x3 Psych: COMMON NORMALS: mental status grossly normal Data : 05/17/20 03:36 05/17/20 03:36 Micro: Microbiology 05/15/20 04:15 Urine Culture - Final Urine,Clean Catch A&P Additional A&P Information # acute appendicitis, status post laparoscopic appendectomy Postoperative day 2 Incidental note made of right-sided uric stasis and surrounding mild inflamma tion with small bladder stone, which appears to be consistent with a recently passed stone. Clinically patient does not have any acute signs or symptoms of pyelonephritis. He does not have CVA tenderness. He has been afebrile since his admission here. Does not have any urinary symptoms of urgency, dysuria at this present time or prior to presentation. There is an alternate explanation for his symptoms by way of acute appendicitis which is now been surgically treated. Clinically does not appear to have pyelonephritis, however given that his UA is showing WBCs and positive leuk esterase, urine cultures no growth after 2 days, it would be reasonable to treat him with a 5 to 7-day course of empiric antibiotics for possible UTI. Currently Zosyn is an appropriate choice which will cover for both urinary and abdominal sources of infection. Will be discharged on levofloxacin 750 mg p.o. daily for 7 remaining days Recommend outpatient follow-up with urology for nephrolithiasis Advised to drink plenty of electrolyte balance fluids Thank you for consulting the medicine service and allowing us to assist in patient's care Attestations Medical Necessity Statement*: Patient will be discharged today, for acute appendicitis, concerns for nephrolithiasis with pyelonephritis Coding Level of Care Code Acute Inspector Screen Printing for Tiffanie Romero
[2020-05-21 21:26] LABS: Stone Source URINE
== END 2020-05-17 11:14 | disposition home or self-care (01) ==
LOC: ER 06:37 → OPS 06:49 → MEDSURG 11:18
PROVIDERS: Emergency Medicine; Admitting Provider Surgery; PCP Registered Nurse; Visit Provider Surgery
PROC: (CPT 44950; principal; 2020-05-15 09:40)
DX: K35.80 Unspecified acute appendicitis (principal); N21.0 Calculus in bladder; Z87.442 Personal history of urinary calculi
CPT/HCPCS: 44970; 12345; 36415; 74176; 80048; 80053; 81001; 82365; 83690; 85025; 86140; 87086; 88304; 96361; 96365; 96366; 96367; 96375; 99283; 99285; G0378; J0131; J0330; J0696; J1100; J2270; J2405; J2543; J2704; J2710; J3010; J3490; J7030

== ENCOUNTER → 2020-05-20 16:24 | Outpatient (BNVA) | payer BC, SELFPAY | PROVIDERS: PCP Registered Nurse; Visit Provider Registered Nurse | DX: Z87.442 Personal history of urinary calculi (principal) | CPT/HCPCS: 85025 ==

== ENCOUNTER 2020-12-02 18:45 | Emergency (ER) | payer BC, SELFPAY ==
--- NOTE | 2020-12-02 18:49 | XR_ITS ---
WS: [id number] Left foot, 3 views, 12/02/2020 Clinical Data: injury Comparison: None. Findings: No fractures or dislocations are seen. No bone destruction or erosion is noted. The joint spaces and soft tissues are normal. XR/XR foot LT min 3V* [id number] Impression: Negative left foot.
[2020-12-02 19:04] VITALS: BP 134/94; PULSE 64; RESP 16; TEMP 36; O2SAT 99; BMI 27.3
--- NOTE | 2020-12-02 19:51 | XR_ITS ---
WS: [id number] Left ankle, 3 views, 12/02/2020 Clinical Data: pain Comparison: None. Findings: No fractures or dislocations are seen. The ankle mortise is normal. The talus and calcaneus are unrem arkable. No soft tissue swelling over the medial or lateral malleolus is seen. XR/XR ankle LT min 3V* [id number] Impression: Negative left ankle.
--- NOTE | 2020-12-02 19:59 | ED_ITS ---
HPI - Extremity Problem General: Chief complaint: Extremity Injury, Lower Stated complaint: LEFT FOOT INJURY Time Seen by Provider: 12/02/20 18:52 Source: patient Mode of arrival: ambulatory Limitations: no limitations History of Present Illness: HPI Narrative: 40-year-old male states he was playing basketball just before arrival. States he rolled his left foot and felt a pop in the lateral portion of that foot. He states that since then he has had pain he rates an 8 out of 10 along with swelling. He states it hurts with any type of movement and with bearing weight. He states improved with rest. Denies any ankle pain or knee pain. Associated symptoms: Deny chest pain, fever(s) or rash Review of Systems Const: Denies: fever(s), chills, body aches or change in appetite Eyes: Denies: blurry vision or eye discomfort ENMT: Denies: throat pain or dental pain Card: Denies: chest pain Resp: Denies: dyspnea GI: Denies: abdominal pain, nausea, vomiting or diarrhea : Denies: dysuria Musc: Reports: extremity pain; Denies: neck pain or back pain Skin/Breast: Denies: rash Neuro: Denies: headache(s) Psych: Denies: depression Fredrick/Lymph: Denies: easy bruising All/Imm: Denies: urticaria Physical Exam Const: COMMON NORMALS: no acute distress, patient oriented x3 and healthy appearing HENMT: COMMON NORMALS: normocephalic and atraumatic HEAD & SCALP: normocephalic and atraumatic Eye: COMMON NORMALS: Equal, round and reactive pupils present and EOMs intact bilaterally PUPIL: Yes Equal, round and reactive pupils present Neck/C-Spine: COMMON NORMALS: full ROM and supple Chest: COMMONS NORMALS: normal inspection of the chest and normal palpation of entire chest wall Resp: COMMON NORMALS: normal respiratory effort, No retractions, No use of accessory muscles and clear to auscultation bilaterally AUSCULTATION: clear to auscultation bilaterally Cardio: COMMON NORMALS: regular rate, regular rhythm and No murmurs present (Cardio) RATE: regular rate RHYTHM: regular rhythm GI: COMMON NORMALS: Normal to inspection, nondistended, normoactive bowel sounds present, Soft to palpation, non-tender and no masses PALPATION: Yes Soft to palpation Extremity: COMMON NORMALS: full ROM NARRATIVE EXTREMITY EXAM: Swelling and tenderness to left lateral foot over the fifth metatarsal Neuro: COMMON NORMALS: patient oriented x3, moves all extremities and no focal motor deficits Psych: COMMON NORMALS: mental status grossly normal, Normal thought process present and cooperative THOUGHT PROCESS: Normal thought process present Skin: COMMON NORMALS: no rashes or lesions noted and no wounds GENERAL SKIN EXAM: no rashes or lesions noted Course Vital Signs: Vital signs: Vital Signs Temperature 96.8 F L 12/02/20 19:04 Pulse Rate 64 12/02/20 19:04 Respiratory Rate 16 12/02/20 19:04 Blood Pressure 134/94 12/02/20 19:04 Pulse Oximetry 99 12/02/20 19:04 MDM - Extremity (Nontraumatic) MDM Narrative: Medical decision making narrative: Patient presents here with fracture to the proximal portion of his fifth metatarsal of the left foot. Patient placed in a splint and crutches and is to follow-up with orthopedics. Patient stable for discharge and has no signs of ankle or knee injury Imaging Data^: X-ray left foot: Attestation: I personally reviewed and interpreted this imaging study as follows: My impression: Fracture to proximal fifth metacarpal proximally Discharge Plan Discharge Patient Disposition: Home Clinical Impression: Metatarsal bone fracture Qualifiers: Encounter type: initial encounter Metatarsal bone: fifth Fracture type: closed Fracture alignment: nondisplaced Laterality: left Qualified Code(s): S92.355A - Nondisplaced fracture of fifth metatarsal bone, left foot, initial encounter for closed fracture Condition: Stable Prescriptions: [place] 5-325 mg tablet 1 tab PO Q6H PRN (Reason: pain) Qty: 14 RF: 0 No Action sumatriptan succinate [Imitrex] 100 mg tablet See Rx Instructions PO .COMPLEX Qty: 60 RF: 5 amoxicillin-pot clavulanate [Augmentin] 875-125 mg tablet 1 tab PO BID 7 Days Qty: 14 RF: 0 fexofenadine-pseudoephedrine [Bhavya-D 12 Hour] 60-120 mg tablet extended release 12 hr 1 tab PO Q12H PRN (Reason: allergy symptoms) 10 Days Qty: 20 RF: 0 ciprofloxacin HCl 500 mg tablet 500 mg PO BID Qty: 20 RF: 0 benzonatate 200 mg capsule 200 mg PO BID Qty: 20 RF: 0 Multiple Vitamins Tablet 1 tab PO DAILY RF: 0 Discharge Orders: Discharge ED (Routine); Ordered 12/02/20 Ordered By: Truong Kang Referrals: Dylan Lobato FNP [Primary Care Provider] - Sid Dias MD [Physician] - 1-3 days Discharge Activity: Resume usual activity Patient Instructions: Foot Fracture in Adults (ED), Opioid Safety Coding Level of Care Code ED Business Project Analyst for Tiffanie Romero
[2020-12-02] MEDS: HYDROcodone-acetaminophen 5-325 mg Tablet 1 TAB PO (20:09)
[2020-12-02 20:37] VITALS: BP 134/88; PULSE 68; RESP 16; TEMP 36; O2SAT 99
--- NOTE | 2020-12-03 08:28 | DCPLANNER ---
food service manager received message to schedule a follow up appointment with Dr. Dias for metatarsal fx. CM called ortho clinic and spoke to Felecia. She took down information she needed to schedule appointment. She will call patient with appointment details.
--- NOTE | 2020-12-08 11:41 | DCPLANNER ---
Patient had a follow up appointment scheduled for 12.03.[address] Dias, ortho - patient did attend appointment.
== END 2020-12-02 20:41 | disposition home or self-care (01) ==
PROVIDERS: Emergency Provider Emergency Medicine; PCP Registered Nurse
DX: S92.355A Nondisplaced fracture of fifth metatarsal bone, left foot, initial encounter for closed fracture (principal); X50.1XXA Overexertion from prolonged static or awkward postures, initial encounter; Y93.67 Activity, basketball
CPT/HCPCS: 29515; 73610; 73630; 99283; E0114

== ENCOUNTER → 2020-12-15 13:45 | Outpatient (BNVA) | payer BC, SELFPAY | PROVIDERS: PCP Registered Nurse; Referring Provider Registered Nurse; Visit Provider Podiatrist Foot & Ankle Surgery | DX: S92.352A Displaced fracture of fifth metatarsal bone, left foot, initial encounter for closed fracture (principal); X58.XXXA Exposure to other specified factors, initial encounter | CPT/HCPCS: 73630 ==

== ENCOUNTER → 2020-12-30 14:04 | Outpatient (BNVA) | payer BC, SELFPAY | PROVIDERS: PCP Registered Nurse; Visit Provider Podiatrist Foot & Ankle Surgery | DX: S92.352A Displaced fracture of fifth metatarsal bone, left foot, initial encounter for closed fracture (principal); X58.XXXA Exposure to other specified factors, initial encounter | CPT/HCPCS: 73630 ==

== ENCOUNTER → 2021-01-20 08:33 | Outpatient (BNVA) | payer BC, SELFPAY | PROVIDERS: PCP Registered Nurse; Visit Provider Podiatrist Foot & Ankle Surgery | DX: S92.352D Displaced fracture of fifth metatarsal bone, left foot, subsequent encounter for fracture with routine healing (principal); X58.XXXD Exposure to other specified factors, subsequent encounter | CPT/HCPCS: 73630 ==

== ENCOUNTER → 2021-02-07 08:19 | Outpatient (BNVA) | payer BC, SELFPAY | PROVIDERS: PCP Registered Nurse; Visit Provider Podiatrist Foot & Ankle Surgery | DX: S92.352A Displaced fracture of fifth metatarsal bone, left foot, initial encounter for closed fracture (principal); X50.1XXA Overexertion from prolonged static or awkward postures, initial encounter; Y93.67 Activity, basketball | CPT/HCPCS: 73630 ==

== ENCOUNTER → 2021-06-28 14:00 | Outpatient (BNVA) | payer BC, SELFPAY | PROVIDERS: PCP Registered Nurse; Referring Provider Registered Nurse; Visit Provider Surgery | DX: D17.0 Benign lipomatous neoplasm of skin and subcutaneous tissue of head, face and neck (principal) | CPT/HCPCS: 88304 ==

== ENCOUNTER 2022-02-05 19:31 | Emergency (ER) | payer BC, SELFPAY ==
[2022-02-05 20:04] VITALS: BP 136/70; PULSE 68; RESP 20; TEMP 37.3; O2SAT 97; BMI 25.1
[2022-02-05 20:33] LABS: Add Urine Microscopic? NO; Charge for UA Resulting for Rev
--- NOTE | 2022-02-05 20:33 | CTR_ITS ---
PROCEDURE INFORMATION: Exam: CT Abdomen And Pelvis Without Contrast Exam date and time: 02/05/2022 8:59 PM Age: 41 years old Clinical indication: Abdominal pain; Right lower quadrant (rlq); Prior surgery; Surgery date: 6+ months; Surgery type: Appy; Patient HX: C/O R flank/rlq pain; Additional info: Right side abdominal pain TECHNIQUE: Imaging protocol: Computed tomography of the abdomen and pelvis without contrast. Radiation optimization: All CT scans at this facility use at least one of these dose optimization techniques: automated exposure control; mA and/or kV adjustment per patient size (includes targeted exams where dose is matched to clinical indication); or iterative reconstruction. COMPARISON: CT kidney stone [id number] 05/15/2020 4:53 AM RADIATION DOSE METRICS: Total DLP (mGy-cm): 1058.44 FINDINGS: Lungs: Left lower lobe atelectasis. Liver: Left hepatic lobe subcentimeter cyst. Gallbladder and bile ducts: Normal. No calcified stones. No ductal dilation. Pancreas: Normal. No ductal dilation. Spleen: Normal. No splenomegaly. Adrenal glands: Normal. No mass. Kidneys and ureters: Right proximal ureter 5.4 mm calculus with mild hydronephrosis and hydroureter along with some perinephric edema perhaps reflecting associated pyelonephritis. Several right kidney punctate nonobstructing calyceal stones. Stomach and bowel: Unremarkable. No obstruction. No mucosal thickening. Appendix: No evidence of appendicitis. Intraperitoneal space: Unremarkable. No free air. No significant fluid collection. Vasculature: Unremarkable. No abdominal aortic aneurysm. Lymph nodes: Unremarkable. No enlarged lymph nodes. Urinary bladder: Unremarkable as visualized. Reproductive: Unremarkable as visualized. Bones/joints: Bilateral L5 chronic pars interarticularis defects. Soft tissues: Unremarkable. CT/CT kidney stone [id number] IMPRESSION: 1. Right proximal ureter 5.4 mm calculus with mild hydronephrosis and hydroureter along with some perinephric edema perhaps reflecting associated pyelonephritis. 2. Bilateral L5 chronic pars interarticularis defects. 3. Left lower lobe atelectasis. 4. Several right kidney punctate nonobstructing calyceal stones. 5. Left hepatic lobe subcentimeter cyst.
[2022-02-05 20:34] LABS: Basophils % 0.2 %; Eosinophils % 0.1 %; Hematocrit 42.7 % (42.0-52.0); Hemoglobin 14.5 g/dL (11.7-16.6); Lymphocytes # 1.9 10^3/uL (0.8-4.8); Lymphocytes % 13.7 %; Mean Corpuscular Hemoglobin 30.3 pg (28.0-34.0); Mean Corpuscular Volume 89.1 fl (80-94); Mean Platelet Volume 10.6 fL (7.4-10.4); Monocytes % 7.2 %; Neutrophils % 78.5 %; Nucleated Red Blood Cells % 0 %; Platelet Count 205 10^3/cmm (130-400); Red Blood Count 4.79 10^6/uL (4.1-5.3); Red Cell Distribution Width 12.4 % (12.1-15.1); White Blood Count 13.8 10^3/uL (4.0-10.0)
--- NOTE | 2022-02-05 20:35 | ED_ITS ---
Documented by User: REX Mckeon 02/06/22 04:00 HPI - Abdominal Pain General: Chief Complaint: Abdominal Pain Stated Complaint: kidney stones Time Seen by Provider: 02/05/22 20:16 History of Present Illness: Patient is a 41-year-old male comes to the ED with right sided abdominal/flank pain. Symptoms started approximately 3 days ago. Past surgical history of appendectomy. Patient has a history of kidney stones and says this pain is similar to his past kidney stones. Pain is located in the right lower abdomen and right flank. He rates his pain currently a 5 out of 10. Patient took an dose of oral Toradol at noon today. Denies any dysuria, h ematuria, fever, nausea/vomiting or bowel symptoms. Associated Symptoms: Denies chills, constipation, diarrhea, dysuria, fever(s), hematochezia, hematuria, nausea and vomiting Review of Systems Const: Denies: fever(s), chills or fatigue Eyes: Denies: change in vision or eye discomfort ENMT: Denies: throat pain, odynophagia, nasal discharge or nasal congestion Card: Denies: chest pain, palpitations, edema, swelling of feet/ankles, dyspnea on exertion or orthopnea Resp: Denies: dyspnea, productive cough or non-productive cough GI: Reports: abdominal pain (Right lower quadrant abdominal pain); Denies: nausea, vomiting, diarrhea, constipation or hematochezia : Reports: flank pain (Right flank); Denies: difficulty urinating, dysuria or hematuria Musc: Denies: neck pain, back pain or extremity swelling Skin/Breast: Denies: rash or new lesions Neuro: Denies: headache(s), numbness in extremities or weakness in extremities PFSH ED PFSH: Medical History History of nephrolithiasis Surgical History History of laparoscopic appendectomy 05/2020 Dr. Duarte Family History Other CAD (coronary artery disease) Social History Smoking and tobacco status: never smoked Alcohol intake: never Adopted: No Caregiver/support person: No Lives independently: No Household members: spouse and children History of recent travel: No Sexually active: Yes Current gender identity: Male Physical Exam Const: COMMON NORMALS: patient oriented x3 and alert GENERAL APPEARANCE: cooperative; not comfortable (Patient appears uncomfortable and in some pain.) HENMT: COMMON NORMALS: normocephalic HEAD & SCALP: normocephalic MOUTH: Normal oral and palatal mucosa present THROAT: posterior oropharynx normal an d uvula midline Eye: COMMON NORMALS: Equal, round and reactive pupils present PUPIL: Yes Equal, round and reactive pupils present Neck/C-Spine: COMMON NORMALS: supple GENERAL: Yes normal visual inspection Resp: COMMON NORMALS: normal respiratory effort, No retractions, No use of accessory muscles and clear to auscultation bilaterally AUSCULTATION: clear t o auscultation bilaterally Cardio: COMMON NORMALS: regular rate, regular rhythm, S1 normal heart sound present, S2 normal heart sound present, No gallops present (Cardio), No clicks present (Cardio), No murmurs present (Cardio) and Peripheral pulses 2+ throughout RATE: regular rate RHYTHM: regular rhythm HEART SOUNDS: S1 normal heart sound present and S2 normal heart sound present PERIPHERAL PULSES: Peripheral pulses 2+ throughout GI: COMMON NORMALS: Normal to inspection, nondistended, normoactive bowel sounds present, Soft to palpation, non-tender and no masses PALPATION: Yes Soft to palpation : COMMON NORMALS: Yes no CVA tenderness BLADDER/KIDNEY EXAM: Yes no CVA tenderness Back/Pelvis: COMMON NORMALS: no CVA tenderness Extremity: COMMON NORMALS: normal to inspection Neuro: COMMON NORMALS: patient oriented x3 SENSORIUM/ORIENTATION: Yes alert GAIT: Yes Normal gait present Skin: GENERAL SKIN EXAM: dry skin Course Reevaluation(s): Reevaluation #1: Patient's pain was controlled with IV pain meds. He felt comfortable with discharging home and trying to manage passing stone at home. Time: 23:30 Vital Signs: Vital signs: Vital Signs Temperature 99.2 F 02/05/22 20:04 Pulse Rate 78 02/06/22 00:18 Respiratory Rate 18 02/06/22 00:18 Blood Pressure 135/78 02/06/22 00:18 Pulse Oximetry 98 02/06/22 00:18 MDM - Abdominal Pain Medical Decision Making Patient is a 41-year-old male comes to the ED with right flank pain. He has a history of kidney stones and says this pain feels similar to his past kidney stones. Denies any UTI symptoms. Vitals are stable. Patient appears uncomfortable and in some pain. Exam is benign. White blood cell count 13.8. The rest of CBC, CMP and UA were unremarkable. CT of abdomen pelvis showed right proximal stone that is 5.4 mm with some mild hydronephrosis noted. Patient's pain was controlled with IV pain meds here in the ED. He felt comfortable and stable for discharge home. I placed an order with case management for patient be referred to Dr. Israel for follow-up. He was discharged home with a prescription for Flomax, Zofran, naproxen and hydrocodone for acute pain. He was given strict return to ED precautions if he cannot manage pain at home. He was told case assistant will call in the next couple days about setting up appoint with Dr. Israel. Patient understood and agreed with plan. Lab Data I reviewed the patient's lab results. : 02/05/22 20:24 02/05/22 20:24 Labs/Radiology: Radiology Impressions Abdomen/Pelvis CT 02/05/22 20:33 IMPRESSION: 1. Right proximal ureter 5.4 mm calculus with mild hydronephrosis and hydroureter along with some perinephric edema perhaps reflecting associated pyelonephritis. 2. Bilateral L5 chronic pars interarticularis defects. 3. Left lower lobe atelectasis. 4. Several right kidney punctate nonobstructing calyceal stones. 5. Left hepatic lobe subcentimeter cyst. Laboratory Results WBC 13.8 10^3/uL (4.0-10.0) H 02/05/22 20:24 RBC 4.79 10^6/uL (4.1-5.3) 02/05/22 20:24 Hgb 14.5 g/dL (11.7-16.6) 02/05/22 20:24 Hct 42.7 % (42.0-52.0) 02/05/22 20:24 MCV 89.1 fl (80-94) 02/05/22 20:24 MCH 30.3 pg (28.0-34.0) 02/05/22 20:24 MCHC 34.0 g/dL (30.0-36.0) 02/05/22 20:24 RDW 12.4 % (12.1-15.1) 02/05/22:24 Plt Count 205 10^3/cmm (130-400) 02/05/22 20:24 MPV 10.6 fL (7.4-10.4) H 02/05/22 20:24 Neut % (Auto) 78.5 % 02/05/22 20: Lymph % (Auto) 13.7 % 02/05/22: [place] % (Auto) 7.2 % 02/05/22 20:24 Eos % (Auto) 0.1 % 02/05/22 20: Baso % (Auto) 0.2 % 02/05/22: Neut # (Auto) 10.80 10^3/uL (1.8-7.7) H 02/05/22 20:24 Lymph # (Auto) 1.9 10^3/uL (0.8-4.8) 02/05/22: [place] # (Auto) 1.0 10^3/uL (0.2-0.9) H 02/05/22 20:24 Eos # (Auto) 0.0 10^3/uL (0.0-0.8) 02/05/22: Baso # (Auto) 0.0 10^3/uL (0.0-0.1) 02/05/22 20:24 Nucleated RBC % (auto) 0 % 02/05/22: Nucleated RBCs # 0.0 /100WBC 02/05/22 20:24 Sodium 136 mmol/L (136-145) 02/05/22 20:24 Potassium 4.8 mmol/L (3.5-5.1) 02/05/22 20:24 Chloride 101 mmol/L (98-107) 02/05/22 20:24 Carbon Dioxide 26 mmol/L (22-29) 02/05/22 20:24 Anion Gap 13.8 (5-19) 02/05/22 20:24 BUN 12 mg/dL (6-20) 02/05/22 20:24 Creatinine 1.1 mg/dL (0.7-1.2) 02/05/22 20:24 GFR Calculation 73.4 mL/min (90-130) L 02/05/22 20: Glucose 118 mg/dL (65-115) H 02/05/22 20:24 Calculated Osmolality 283 mOsm/kg (285-295) L 02/05/22 20: Calcium 8.9 mg/dL (8.5-10.5) 02/05/22 20:24 Total Bilirubin 0.6 mg/dL (0.15-1.2) 02/05/22 20: AST 24 U/L (0-40) 02/05/22 20: ALT 16 U/L (0-41) 02/05/22 20:24 Alkaline Phosphatase 71 IU/L (40-130) 02/05/22 20: Total Protein 6.8 g/dL (6.6-8.7) 02/05/22 20: Albumin 4.4 g/dL (3.5-5.2) 02/05/22: Globulin 2.4 g/dL (1.3-4.6) 02/05/22: Lipase 27 U/L (13-60) 02/05/22 20:24 Urine Color Yellow (Yellow) 02/05/22 20:00 Urine Appearance Clear (CLEAR) 02/05/22 20:00 Urine pH 6 (5-7) 02/05/22 20:00 Ur Specific [place] 1.010 (1.005-1.030) 02/05/22 20:00 Urine Protein Neg (Negative) 02/05/22 20:00 Urine Glucose (UA) Norm (Normal) 02/05/22 20:00 Urine Ketones 1+ (Negative) H 02/05/22 20:00 Urine Blood Neg (Negative) 02/05/22 20:00 Urine Nitrate Negative (Negative) 02/05/22 20:00 Urine Bilirubin Neg (Negative) 02/05/22 20:00 Urine Urobilinogen Norm mg/dL (Negative) 02/05/22 20:00 Ur Leukocyte Esterase Negative (Negative) 02/05/22 20:00 Discharge Plan Discharge Patient Disposition: Home Clinical Impression: Kidney stone on right side Condition: Stable Prescriptions: New ondansetron 4 mg tablet,disintegrating 4 mg PO Q8H PRN (Reason: nausea and vomiting) Qty: 12 0RF Naprosyn 500 mg tablet 500 mg PO BID PRN (Reason: pain) Qty: 20 0RF tamsulosin 0.4 mg capsule 0.4 mg PO DAILY Qty: 20 0RF No Action sumatriptan succinate [Imitrex] 100 mg tablet See Rx Instructions PO .COMPLEX Qty: 60 5RF Rx Instructions: take 1 tab at onset of headache; if no relief may repeat 1 tab in 2hr; max = 2 tabs/24 hrs PO Multiple Vitamins Tablet 1 tab PO DAILY 0RF Discharge Orders: Discharge ED (Routine); Ordered 02/05/22 Ordered By: Leo Martinez Referrals: Dylan Lobato FNP [Primary Care Provider] - Discharge Diet: Regular Discharge Activity: Increase activity as tolerated Patient Instructions: Kidney Stones (ED), How to Strain Your Urine (ED), Opioid Safety Activity Restrictions/Additional Instructions: Follow-up with medical provider as directed. Case management should be contacting you in the next several days to set up an appointment with Dr. Israel the urologist. Strain urine to catch stone and drink lots of fluid to stay hydrated and help pass stone. Take medications as prescribed. Return to the ER or your medical provider if condition worsens. Please read and understand discharge instructions. If any questions, please ask. Coding Level of Care Code ED Paving Bed Maker for Chg Fwd Exam Comprehensive Documented by User: Luis Mayen DO 02/06/22 04:09 HPI - Abdominal Pain General: Chief Complaint: Abdominal Pain Stated Complaint: kidney stones Time Seen by Provider: 02/05/22 20:16 [facility] ED PFSH: Medical History History of nephrolithiasis Surgical History History of laparoscopic appendectomy 05/2020 Dr. Duarte Family History Other CAD (coronary artery disease) Social History Smoking and tobacco status: never smoked Alcohol intake: never Adopted: No Caregiver/support person: No Lives independently: No Household members: spouse and children History of recent travel: No Sexually active: Yes Current gender identity: Male Course Vital Signs: Vital signs: Vital Signs Temperature 99.2 F 02/05/22 20:04 Pulse Rate 78 02/06/22 00:18 Respiratory Rate 18 02/06/22 00:18 Blood Pressure 135/78 02/06/22 00:18 Pulse Oximetry 98 02/06/22 00:18 MDM - Abdominal Pain Medical Decision Making Patient is a 41-year-old male comes to the ED with right flank pain. He has a history of kidney stones and says this pain feels similar to his past kidney stones. Denies any UTI symptoms. Vitals are stable. Patient appears uncomfortable and in some pain. Exam is benign. White blood cell count 13.8. The rest of CBC, CMP and UA were unremarkable. CT of abdomen pelvis showed right proximal stone that is 5.4 mm with some mild hydronephrosis noted. Patient's pain was controlled with IV pain meds here in the ED. He felt comfortable and stable for discharge home. I placed an order with case management for patient be referred to Dr. Israel for follow-up. He was discharged home with a prescription for Flomax, Zofran, naproxen and hydrocodone for acute pain. He was given strict return to ED precautions if he cannot manage pain at home. He was told case assistant will call in the next couple days about setting up appoint with Dr. Israel. Patient understood and agreed with plan. This patient was originally seen by Mr. Michelle PA-C.? I agree with his history, evaluation, and treatment. Lab Data : 02/05/22 20:24 02/05/22 20:24 Labs/Radiology: Radiology Impressions Abdomen/Pelvis CT 02/05/22 20:33 IMPRESSION: 1. Right proximal ureter 5.4 mm calculus with mild hydronephrosis and hydroureter along with some perinephric edema perhaps reflecting associated pyelonephritis. 2. Bilateral L5 chronic pars interarticularis defects. 3. Left lower lobe atelectasis. 4. Several right kidney punctate nonobstructing calyceal stones. 5. Left hepatic lobe subcentimeter cyst. Laboratory Results WBC 13.8 10^3/uL (4.0-10.0) H 02/05/22: RBC 4.79 10^6/uL (4.1-5.3) 02/05/22: Hgb 14.5 g/dL (11.7-16.6) 02/05/22 20: Hct 42.7 % (42.0-52.0) 02/05/22: MCV 89.1 fl (80-94) 02/05/22: MCH 30.3 pg (28.0-34.0) 02/05/22: MCHC 34.0 g/dL (30.0-36.0) 02/05/22: RDW 12.4 % (12.1-15.1) 02/05/22: Plt Count 205 10^3/cmm (130-400) 02/05/22: MPV 10.6 fL (7.4-10.4) H 02/05/22: Neut % (Auto) 78.5 % 02/05/22: Lymph % (Auto) 13.7 % 02/05/22: [place] % (Auto) 7.2 % 02/05/22: Eos % (Auto) 0.1 % 02/05/22: Baso % (Auto) 0.2 % 02/05/22: Neut # (Auto) 10.80 10^3/uL (1.8-7.7) H 02/05/22: Lymph # (Auto) 1.9 10^3/uL (0.8-4.8) 02/05/22:24 [place] # (Auto) 1.0 10^3/uL (0.2-0.9) H 02/05/22:24 Eos # (Auto) 0.0 10^3/uL (0.0-0.8) 02/05/22: Baso # (Auto) 0.0 10^3/uL (0.0-0.1) 02/05/22: Nucleated RBC % (auto) 0 % 02/05/22:24 Nucleated RBCs # 0.0 /100WBC 02/05/22 20:24 Sodium 136 mmol/L (136-145) 02/05/22 20:24 Potassium 4.8 mmol/L (3.5-5.1) 02/05/22 20:24 Chloride 101 mmol/L (98-107) 02/05/22 20:24 Carbon Dioxide 26 mmol/L (22-29) 02/05/22 20:24 Anion Gap 13.8 (5-19) 02/05/22 20:24 BUN 12 mg/dL (6-20) 02/05/22 20:24 Creatinine 1.1 mg/dL (0.7-1.2) 02/05/22 20:24 GFR Calculation 73.4 mL/min (90-130) L 02/05/22 20: Glucose 118 mg/dL (65-115) H 02/05/22 20:24 Calculated Osmolality 283 mOsm/kg (285-295) L 02/05/22: Calcium 8.9 mg/dL (8.5-10.5) 02/05/22 20:24 Total Bilirubin 0.6 mg/dL (0.15-1.2) 02/05/22 20:24 AST 24 U/L (0-40) 02/05/22 20: ALT 16 U/L (0-41) 02/05/22 20:24 Alkaline Phosphatase 71 IU/L (40-130) 02/05/22 20:24 Total Protein 6.8 g/dL (6.6-8.7) 02/05/22: Albumin 4.4 g/dL (3.5-5.2) 02/05/22 20:24 Globulin 2.4 g/dL (1.3-4.6) 02/05/22 20:24 Lipase 27 U/L (13-60) 02/05/22 20:24 Urine Color Yellow (Yellow) 02/05/22 20: Urine Appearance Clear (CLEAR) 02/05/22 20: Urine pH 6 (5-7) 02/05/22 20: Ur Specific [place] 1.010 (1.005-1.030) 02/05/22 20:00 Urine Protein Neg (Negative) 02/05/22 20: Urine Glucose (UA) Norm (Normal) 05/15/22 20:00 Urine Ketones 1+ (Negative) H 02/05/22 20:00 Urine Blood Neg (Negative) 02/05/22 20:00 Urine Nitrate Negative (Negative) 02/05/22 20:00 Urine Bilirubin Neg (Negative) 02/05/22 20:00 Urine Urobilinogen Norm mg/dL (Negative) 02/05/22 20:00 Ur Leukocyte Esterase Negative (Negative) 02/05/22 20:00 Discharge Plan Discharge Patient Disposition: Home Clinical Impression: Kidney stone on right side Condition: Stable Prescriptions: New ondansetron 4 mg tablet,disintegrating 4 mg PO Q8H PRN (Reason: nausea and vomiting) Qty: 12 0RF Naprosyn 500 mg tablet 500 mg PO BID PRN (Reason: pain) Qty: 20 0RF tamsulosin 0.4 mg capsule 0.4 mg PO DAILY Qty: 20 0RF No Action sumatriptan succinate [Imitrex] 100 mg tablet See Rx Instructions PO .COMPLEX Qty: 60 5RF Rx Instructions: take 1 tab at onset of headache; if no relief may repeat 1 tab in 2hr; max = 2 tabs/24 hrs PO Multiple Vitamins Tablet 1 tab PO DAILY 0RF Discharge Orders: Discharge ED (Routine); Ordered 02/05/22 Ordered By: Leo Martinez Referrals: Dyaln Lobato FNP [Primary Care Provider] - Discharge Diet: Regular Discharge Activity: Increase activity as tolerated Patient Instructions: Kidney Stones (ED), How to Strain Your Urine (ED), Opioid Safety Activity Restrictions/Additional Instructions: Follow-up with medical provider as directed. Case management should be contacting you in the next several days to set up an appointment with Dr. Israel the urologist. Strain urine to catch stone and drink lots of fluid to stay hydrated and help pass stone. Take medications as prescribed. Return to the ER or your medical provider if condition worsens. Please read and understand discharge instructions. If any questions, please ask. Coding Level of Care Code ED Paving Bed Maker for [place]eli[place] Fwd Exam Comprehensive
[2022-02-05 20:37] LABS: Bilirubin Urine Neg (Negative); Blood Urine Neg (Negative); Glucose Urine UA Norm (Normal); Ketones Urine 1+ (Negative); Leukocyte Esterase Urine Negative (Negative); Nitrate Urine Negative (Negative); Protein Urine Neg (Negative); Urine Appearance Clear (CLEAR); Urine Color Yellow (Yellow); Urobilinogen Urine Norm (Negative); pH Urine 6 (5-7)
[2022-02-05 20:47] VITALS: RESP 20
[2022-02-05] MEDS: morphine 4 mg/mL SDV 1 mL IVP (20:47)
[2022-02-05] MEDS: ondansetron 2 mg/ML SDV 2 mL 4 MG IVP (20:47)
[2022-02-05] MEDS: sodium chloride 0.9% 500 ML 999 ML IV ×2 (20:52→22:26)
[2022-02-05 20:57] LABS: Albumin Level 4.4 g/dL (3.5-5.2); Alkaline Phosphatase 71 IU/L (40-130); Blood Urea Nitrogen 12 mg/dL (6-20); Calcium 8.9 mg/dL (8.5-10.5); Carbon Dioxide 26 mmol/L (22-29); Chloride 101 mmol/L (98-107); Globulin 2.4 g/dL (1.3-4.6); Glomerular Filtration Rate 73.4 mL/min (90-130); Glucose 118 mg/dL (65-115); Lipase 27 U/L (13-60); Osmolality Calculated 283 mOsm/kg (285-295); Sodium 136 mmol/L (136-145); Total Bilirubin 0.6 mg/dL (0.15-1.2); Total Protein 6.8 g/dL (6.6-8.7)
[2022-02-05 21:02] LABS: Alanine Aminotransferase 16 U/L (0-41); Anion Gap 13.8 (5-19); Aspartate Amino Transferase 24 U/L (0-40); Potassium 4.8 mmol/L (3.5-5.1)
[2022-02-05 22:27] VITALS: RESP 20
[2022-02-05] MEDS: HYDROmorphone 1 mg/mL INJ 1 mL IVP (22:27)
[2022-02-05] MEDS: tamsulosin 0.4 mg Capsule PO (22:27)
[2022-02-06] VITALS: RESP 18; O2SAT 98
[2022-02-06] MEDS: oxyCODONE-APAP 5-325 mg Tablet 1 TAB PO
[2022-02-06 00:18] VITALS: BP 135/78; PULSE 78; RESP 18; O2SAT 98
--- NOTE | 2022-02-08 17:51 | DCPLANNER ---
Addendum entered by Cori Artis 05/16/22 12:37: Patient had a follow up appointment scheduled for 04.25.22 with urology - patient did not attend appointment. Addendum entered by Cori Artis 03/07/22 09:04: unix manager was told by the urology clinic that patient passed the stone, but wanted to establish care as a preventive measure. Appointment was scheduled for Monday, April 25, 2022 at 1:[address] Israel, patient aware of appointment. Original Note: unix manager had message to schedule a follow up appointment for patient with urology. unix manager sent patients information to the front office staff at [facility]. Patients information will be printed and reviewed. Clinic will call patient with appointment information.
== END 2022-02-06 00:19 | disposition home or self-care (01) ==
PROVIDERS: Emergency Provider Physician Assistant; PCP Registered Nurse
DX: N20.0 Calculus of kidney (principal); Z87.442 Personal history of urinary calculi; Z90.89 Acquired absence of other organs
CPT/HCPCS: 74176; 80053; 81003; 83690; 85025; 96361; 96374; 96375; 99284; J1170; J2270; J2405; J7040

== ENCOUNTER 2022-02-07 12:50 | Emergency (ER) | payer BC, SELFPAY ==
[2022-02-07 13:11] VITALS: BP 147/70; PULSE 52; RESP 20; TEMP 36.9; O2SAT 99; BMI 25.1
[2022-02-07 14:04] LABS: Basophils % 0.3 %; Eosinophils % 0.3 %; Hematocrit 40.1 % (42.0-52.0); Hemoglobin 13.5 g/dL (11.7-16.6); Lymphocytes # 1.3 10^3/uL (0.8-4.8); Lymphocytes % 12.8 %; Mean Corpuscular HGB Conc 33.7 g/dL (30.0-36.0); Mean Corpuscular Hemoglobin 30.2 pg (28.0-34.0); Mean Corpuscular Volume 89.7 fl (80-94); Mean Platelet Volume 10.7 fL (7.4-10.4); Monocytes % 9.2 %; Neutrophils # 7.97 10^3/uL (1.8-7.7); Neutrophils % 77.1 %; Nucleated Red Blood Cells % 0 %; Platelet Count 187 10^3/cmm (130-400); Red Blood Count 4.47 10^6/uL (4.1-5.3); Red Cell Distribution Width 12.4 % (12.1-15.1); White Blood Count 10.3 10^3/uL (4.0-10.0)
[2022-02-07 14:16] LABS: Add Urine Microscopic? NO; Charge for UA Resulting for Rev
[2022-02-07 14:22] LABS: Urine Appearance Clear (CLEAR); Urine Color Yellow (Yellow)
[2022-02-07 14:23] LABS: Bilirubin Urine Neg (Negative); Blood Urine Neg (Negative); Glucose Urine UA Norm (Normal); Ketones Urine Negative (Negative); Leukocyte Esterase Urine Negative (Negative); Nitrate Urine Negative (Negative); Protein Urine Neg (Negative); Specific Gravity, Urine 1.005 (1.005-1.030); Urobilinogen Urine Norm (Negative); pH Urine 6.5 (5-7)
--- NOTE | 2022-02-07 14:26 | ED_ITS ---
HPI - Abdominal Pain General: Chief Complaint: Abdominal Pain Stated Complaint: abd Pain Time Seen by Provider: 02/07/22 14:26 History of Present Illness: pt was seen in er yesterday for abd pain; dx with kidney stone-has not passed yet Associated Symptoms: Reports nausea Review of Systems General: Reports: 10 or more systems reviewed and unremarkable except in HPI and below GI: Reports: abdominal pain and nausea : Reports: flank pain (RLQ pain ) PFSH ED PFSH: Medical History History of nephrolithiasis Surgical History History of laparoscopic appendectomy 05/2020 Dr. Duarte Family History Other CAD (coronary artery disease) Social History Smoking and tobacco status: never smoked Alcohol intake: never Adopted: No Caregiver/support person: No Lives independently: No Household members: spouse and children History of recent travel: No Sexually active: Yes Current gender identity: Male Physical Exam Const: COMMON NORMALS: no acute distress, patient oriented x3, no limitations and alert GENERAL APPEARANCE: cooperative and comfortable ORIENTATION/CONSCIOUSNESS: Yes awake, Yes oriented to person, Yes oriented to place and Yes oriented to time HENMT: COMMON NORMALS: normocephalic, atraumatic, external ears normal, EAC's normal, TM's normal bilaterally and Normal external nose present HEAD & SCALP: normal to inspection, normocephalic and atraumatic FACE & SINUS: cait l facial exam, sinuses nontender and face symmetric NOSE: Normal external nose present, Normal nares present and No nasal discharge present EXTERNAL EAR: Yes external ears normal EXTERNAL AUDITORY CANAL: EAC's normal TYMPANIC MEMBRANE: TM's normal bilaterally MOUTH: Normal oral and palatal mucosa present, lip normal and tongue normal THROAT: posterior oropharynx normal, tonsils normal and uvula midline Eye: COMMON NORMALS: Equal, round and reactive pupils present, EOMs intact demetrius aterally and conjunctivae normal GENERAL EYE: appearance normal, both eyes and all related structures and normal light reflex EYELID: eyelids normal CONJUNCTIVA: Yes conjunctivae normal PUPIL: Yes Equal, round and reactive pupils present EOM: Yes EOM abnormal DIRECT OPHTHALMOSCOPY: Yes normal light reflex Neck/C-Spine: COMMON NORMALS: full ROM, no lymphadenopathy, supple, no mening eal signs, no JVD and Thyroid normal GENERAL: Yes normal visual inspection THYROID: Thyroid normal CERVICAL SPINE: Yes cervical ROM normal and Yes normal cervical lordosis Lymph: LYMPHATIC: no lymphadenopathy noted Chest: COMMONS NORMALS: normal inspection of the chest and normal palpation of entire chest wall Resp: COMMON NORMALS: normal respiratory effort, No retractions and clear to auscultation bilaterally AUSCULTATION: clear to auscultation bilaterally Cardio: COMMON NORMALS: no JVD, regular rate, regular rhythm, S1 normal heart sound present, S2 normal heart sound present, No gallops present (Cardio), No clicks present (Cardio), No murmurs present (Cardio), No rub (Cardio) and Peripheral pulses 2+ throughout RATE: regular rate RHYTHM: regular rhythm HEART SOUNDS: S1 normal heart sound present and S2 normal heart sound present PERIPHERAL PULSES: Peripheral pulses 2+ throughout GI: COMMON NORMALS: Normal to inspection, nondistended, normoactive bowel sounds present, Soft to palpation, non-tender and no masses PALPATION: Yes Soft to palpation : BLADDER/KIDNEY EXAM: Yes CVA tenderness on the right Back/Pelvis: COMMON NORMALS: thoracic and lumbar spine normal to inspection, no thoracic nor lumbar tenderness and thoraco-lumbar ROM normal GENERAL BACK: Yes CVA tenderness Extremity: COMMON NORMALS: normal to inspection, full ROM, capillary refill normal, no joint enlargement, no clubbing, cyanosis or edema, no calf tenderness and no pedal edema GENERAL: Yes normal exam except as noted Neuro: COMMON NORMALS: patient oriented x3, moves all extremities, no focal motor deficits, no sensory deficits noted and gait normal SENSORIUM/ORIENTATION: Yes alert, Yes oriented to person, Yes oriented to place and Yes oriented to time MENINGEAL SIGNS: Yes no meningeal signs Psych: COMMON NORMALS: mental status grossly normal, Normal thought process present, cooperative, normal affect, speech normal and activity/motor behavior normal SPEECH: Yes normal speech THOUGHT PROCESS: Normal thought process present Skin: COMMON NORMALS: no rashes or lesions noted, no wounds and turgor normal GENERAL SKIN EXAM: no rashes or lesions noted and turgor normal Course Vital Signs: Vital signs: Vital Signs Temperature 98.5 F 02/07/22 13:11 Pulse Rate 52 L 02/07/22 13:11 Respiratory Rate 16 02/07/22 15:42 Blood Pressure 147/70 02/07/22 13:11 Pulse Oximetry 99 02/07/22 13:11 MDM - Abdominal Pain Medical Decision Making Pt stone is moving and hydronephrosis is not worse today. We will ensure his pain is under control and he will stay on top of his pain medication. Follow up with Dr. Israel. Call in am if needed. Lab Data : 02/07/22 13:45 02/07/22 13:45 Labs/Radiology: Radiology Impressions Abdomen/Pelvis CT 02/07/22 15:16 IMPRESSION: 1. Moderate RIGHT hydronephrosis similar to previous. RIGHT ureteral calculus now within the distal one third RIGHT ureter in the pelvis at the level of the S2 vertebral body. Mild RIGHT hydroureter. 2. No other significant changes compared to previous. 3. Bilateral pars defects L5-S1. No significant anterolisthesis. 4. Prior appendectomy. Notified Liliana Dobbins at 02/07/2022 4:10 PM. Laboratory Results WBC 10.3 10^3/uL (4.0-10.0) H 02/07/22 13:45 RBC 4.47 10^6/uL (4.1-5.3) 02/07/22 13:45 Hgb 13.5 g/dL (11.7-16.6) 02/07/22 13:45 Hct 40.1 % (42.0-52.0) L 02/07/22 13:45 MCV 89.7 fl (80-94) 02/07/22 13:45 MCH 30.2 pg (28.0-34.0) 02/07/22 13:45 MCHC 33.7 g/dL (30.0-36.0) 02/07/22 13:45 RDW 12.4 % (12.1-15.1) 02/07/22 13:45 Plt Count 187 10^3/cmm (130-400) 02/07/22 13:45 MPV 10.7 fL (7.4-10.4) H 02/07/22 13:45 Neut % (Auto) 77.1 % 02/07/22 13:45 Lymph % (Auto) 12.8 % 02/07/22 13:45 [place] % (Auto) 9.2 % 02/07/22 13:45 Eos % (Auto) 0.3 % 02/07/22 13:45 Baso % (Auto) 0.3 % 02/07/22 13:45 Neut # (Auto) 7.97 10^3/uL (1.8-7.7) H 02/07/22 13:45 Lymph # (Auto) 1.3 10^3/uL (0.8-4.8) 02/07/22 13:45 [place] # (Auto) 1.0 10^3/uL (0.2-0.9) H 02/07/22 13:45 Eos # (Auto) 0.0 10^3/uL (0.0-0.8) 02/07/22 13:45 Baso # (Auto) 0.0 10^3/uL (0.0-0.1) 02/07/22 13:45 Nucleated RBC % (auto) 0 % 02/07/22 13:45 Nucleated RBCs # 0.0 /100WBC 02/07/22 13:45 Sodium 137 mmol/L (136-145) 02/07/22 13:45 Potassium 4.0 mmol/L (3.5-5.1) 02/07/22 13:45 Chloride 102 mmol/L (98-107) 02/07/22 13:45 Carbon Dioxide 28 mmol/L (22-29) 02/07/22 13:45 Anion Gap 11.0 (5-19) 02/07/22 13:45 BUN 10 mg/dL (6-20) 02/07/22 13:45 Creatinine 1.0 mg/dL (0.7-1.2) 02/07/22 13:45 GFR Calculation 81.9 mL/min (90-130) L 02/07/22 13:45 Glucose 107 mg/dL (65-115) 02/07/22 13:45 Calculated Osmolality 284 mOsm/kg (285-295) L 02/07/22 13:45 Calcium 9.0 mg/dL (8.5-10.5) 02/07/22 13:45 Total Bilirubin 0.6 mg/dL (0.15-1.2) 02/07/22 13:45 AST 16 U/L (0-40) 02/07/22 13:45 ALT 13 U/L (0-41) 02/07/22 13:45 Alkaline Phosphatase 70 IU/L (40-130) 02/07/22 13:45 Total Protein 7.2 g/dL (6.6-8.7) 02/07/22 13:45 Albumin 4.5 g/dL (3.5-5.2) 02/07/22 13:45 Globulin 2.7 g/dL (1.3-4.6) 02/07/22 13:45 Lipase 19 U/L (13-60) 02/07/22 13:45 Urine Color Yellow (Yellow) 02/07/22 13:35 Urine Appearance Clear (CLEAR) 02/07/22 13:35 Urine pH 6.5 (5-7) 02/07/22 13:35 Ur Specific [place] 1.005 (1.005-1.030) 02/07/22 13:35 Urine Protein Neg (Negative) 02/07/22 13:35 Urine Glucose (UA) Norm (Normal) 02/07/22 13:35 Urine Ketones Negative (Negative) 02/07/22 13:35 Urine Blood Neg (Negative) 02/07/22 13:35 Urine Nitrate Negative (Negative) 02/07/22 13:35 Urine Bilirubin Neg (Negative) 02/07/22 13:35 Urine Urobilinogen Norm mg/dL (Negative) 02/07/22 13:35 Ur Leukocyte Esterase Negative (Negative) 02/07/22 13:35 Imaging Data Other Imaging: Radiologist's impression: [address] [address] [address] Scan Report Signed Patient: Ronal Rojas Unit #: [id number] : 1980 Age/Sex: 41 / M ADM Date: 02/05/22 Loc: ER Room/Bed: Attending Dr: Ordering Provider/Ordering MD: Leo Martinez Date of Service: 02/05/22 Procedure(s): CT kidney stone 28963 Accession Number(s): [id number] Report Number: [id number] PROCEDURE INFORMATION: Exam: CT Abdomen And Pelvis Without Contrast Exam date and time: 02/05/2022 8:59 PM Age: 41 years old Clinical indication: Abdominal pain; Right lower quadrant (rlq); Prior surgery; Surgery date: 6+ months; Surgery type: Appy; Patient HX: C/O R flank/rlq pain; Additional info: Right side abdominal pain TECHNIQUE: Imaging protocol: Computed tomography of the abdomen and pelvis without contrast. Radiation optimization: All CT scans at this facility use at least one of these dose optimization techniques: automated exposure control; mA and/or kV adjustment per patient size (includes targeted exams where dose is matched to clinical indication); or iterative reconstruction. COMPARISON: CT kidney stone [id number] 05/15/2020 4:53 AM RADIATION DOSE METRICS: Total DLP (mGy-cm): 1058.44 FINDINGS: Lungs: Left lower lobe atelectasis. Liver: Left hepatic lobe subcentimeter cyst. Gallbladder and bile ducts: Normal. No calcified stones. No ductal dilation. Pancreas: Normal. No ductal dilation. Spleen: Normal. No splenomegaly. Adrenal glands: Normal. No mass. Kidneys and ureters: Right proximal ureter 5.4 mm calculus with mild hydronephrosis and hydroureter along with some perinephric edema perhaps reflecting associated pyelonephritis. Several right kidney punctate nonobstructing calyceal stones. Stomach and bowel: Unremarkable. No obstruction. No mucosal thickening. Appendix: No evidence of appendicitis. Intraperitoneal space: Unremarkable. No free air. No significant fluid collection. Vasculature: Unremarkable. No abdominal aortic aneurysm. Lymph nodes: Unremarkable. No enlarged lymph nodes. Urinary bladder: Unremarkable as visualized. Reproductive: Unremarkable as visualized. Bones/joints: Bilateral L5 chronic pars interarticularis defects. Soft tissues: Unremarkable. CT/CT kidney stone [id number] IMPRESSION: 1. Right proximal ureter 5.4 mm calculus with mild hydronephrosis and hydroureter along with some perinephric edema perhaps reflecting associated pyelonephritis. 2. Bilateral L5 chronic pars interarticularis defects. 3. Left lower lobe atelectasis. 4. Several right kidney punctate nonobstructing calyceal stones. 5. Left hepatic lobe subcentimeter cyst. Dictated By: Uriah Alcocer MD Signed By: Uriah Alcocer MD Signed Date/Time: 02/05/222131 DD/ [address] [place] [address] CT Scan Report Signed Patient: Ronal Rjoas Unit #: [id number] : 1980 Age/Sex: 41 / M ADM Date: 02/07/22 Loc: ER Room/Bed: Attending Dr: Ordering Provider/Ordering MD: Liliana Dobbins NP Date of Service: 02/07/22 Procedure(s): CT kidney stone [id number] Accession Number(s): [id number] Report Number: [id number] WS: [id number] CT ABDOMEN PELVIS TECHNIQUE: Noncontrast CT of the abdomen and pelvis with coronal and sagittal reformatted images. CLINICAL INFORMATION: unable to pass stone COMPARISON: CT February 05, 2022 DLP: 1417.[address] scans at [facility] use at least one of these dose optimization techniques: automated exposure control; mA and/or kV adjustment per patient size (includes targeted exams where dose is matched to clinical indication); or iterative reconstruction. FINDINGS: Moderate RIGHT hydronephrosis similar to the recent examination. RIGHT perinephric inflammatory stranding and edema similar in appearance. RIGHT hydroureter. RIGHT 5 mm ureteral calculus has traversed distally into the distal one third pelvic ureter. No other significant changes compared to previous. No hydronephrosis in the LEFT kidney. LEFT ureter is decompressed. Tiny LEFT hepatic cyst. Noncontrast liver otherwise normal. Gallbladder appears normal. Normal GE junction. Normal noncontrast spleen. Adrenal glands are normal. Noncontrast pancreas is normal. Lung bases are well aerated. Normal sigmoid colon. No evidence of high-grade small or large bowel obstruction. Prior appendectomy. Tiny fat-containing umbilical hernia. Bilateral pars defects L5- S1. No significant anterolisthesis. CT/CT kidney stone [id number] IMPRESSION: 1. Moderate RIGHT hydronephrosis similar to previous. RIGHT ureteral calculus now within the distal one third RIGHT ureter in the pelvis at the level of the S2 vertebral body. Mild RIGHT hydroureter. 2. No other significant changes compared to previous. 3. Bilateral pars defects L5-S1. No significant anterolisthesis. 4. Prior appendectomy. Notified Liliana Dobbins at 02/07/2022 4:10 PM. Dictated By: Deandre Moses MD Signed By: Deandre Moses MD Signed Date/Time: 02/07/22 1610 DD/ 1559 Discharge Plan Discharge Patient Disposition: Home Clinical Impression: Kidney stone on right side Condition: Stable Prescriptions: No Action sumatriptan succinate [Imitrex] 100 mg tablet See Rx Instructions PO .COMPLEX Qty: 60 5RF Rx Instructions: take 1 tab at onset of headache; if no relief may repeat 1 tab in 2hr; max = 2 tabs/24 hrs PO Multiple Vitamins Tablet 1 tab PO DAILY 0RF ondansetron 4 mg tablet,disintegrating 4 mg PO Q8H PRN (Reason: nausea and vomiting) Qty: 12 0RF Naprosyn 500 mg tablet 500 mg PO BID PRN (Reason: pain) Qty: 20 0RF tamsulosin 0.4 mg capsule 0.4 mg PO DAILY Qty: 20 0RF Discharge Orders: Discharge ED (Routine); Ordered 02/07/22 Ordered By: Liliana Dobbins Referrals: Domingo Israel MD [Physician] - Dylan Lobato FNP [Primary Care Provider] - Patient Instructions: Opioid Safety Stand Alone Forms: Work/School Release Coding Level of Care Code ED Wall Crane Operator for Tiffanie Fwd Exam Comprehensive
[2022-02-07 14:31] LABS: Alanine Aminotransferase 13 U/L (0-41); Albumin Level 4.5 g/dL (3.5-5.2); Alkaline Phosphatase 70 IU/L (40-130); Aspartate Amino Transferase 16 U/L (0-40); Blood Urea Nitrogen 10 mg/dL (6-20); Carbon Dioxide 28 mmol/L (22-29); Chloride 102 mmol/L (98-107); Globulin 2.7 g/dL (1.3-4.6); Glomerular Filtration Rate 81.9 mL/min (90-130); Glucose 107 mg/dL (65-115); Lipase 19 U/L (13-60); Osmolality Calculated 284 mOsm/kg (285-295); Sodium 137 mmol/L (136-145); Total Bilirubin 0.6 mg/dL (0.15-1.2); Total Protein 7.2 g/dL (6.6-8.7)
[2022-02-07 14:33] VITALS: RESP 16
[2022-02-07] MEDS: HYDROmorphone 1 mg/mL INJ 1 mL IVP (14:33)
[2022-02-07] MEDS: ondansetron 2 mg/ML SDV 2 mL 4 MG IVP (14:34)
--- NOTE | 2022-02-07 15:16 | CT_ITS ---
WS: [id number] CT ABDOMEN PELVIS TECHNIQUE: Noncontrast CT of the abdomen and pelvis with coronal and sagittal reformatted images. CLINICAL INFORMATION: unable to pass stone COMPARISON: CT February 05, 2022 DLP: 1417.[address] scans at [facility] use at least one of these dose optimization techniques: automated e xposure control; mA and/or kV adjustment per patient size (includes targeted exams where dose is matc hed to clinical indication); or iterative reconstruction. FINDINGS: Moderate RIGHT hydronephrosis similar to the recent examination. RIGHT perinephric inflammatory stran ding and edema similar in appearance. RIGHT hydroureter. RIGHT 5 mm ureteral calculus has traversed d istally into the distal one third pelvic ureter. No other significant changes compared to previous. No hydronephrosis in the LEFT kidney. LEFT ureter is decompressed. Tiny LEFT hepatic cyst. Noncontras t liver otherwise normal. Gallbladder appears normal. Normal GE junction. Normal noncontrast spleen. Adrenal glands are normal. Noncontrast pancreas is normal. Lung bases are well aerated. Normal sigmoid colon. No evidence of high-grade small or large bowel obstruction. Prior appendectomy. Tiny fat-containing umbilical hernia. Bilateral pars defects L5-S1. No significant anterolisthesis. CT/CT kidney stone [id number] IMPRESSION: 1. Moderate RIGHT hydronephrosis similar to previous. RIGHT ureteral calculus now within the distal one third RIGHT ureter in the pelvis at the level of the S2 vertebral body. Mild RIGHT hydroureter. 2. No other significant changes compared to previous. 3. Bilateral pars defects L5-S1. No significant anterolisthesis. 4. Prior appendectomy. Notified Liliana Dobbins at 02/07/2022 4:10 PM.
[2022-02-07 15:42] VITALS: RESP 16
[2022-02-07] MEDS: HYDROmorphone 1 mg/mL INJ 1 mL 0.4 MG IVP ×2 (15:42→17:01)
[2022-02-07 17:01] VITALS: RESP 16
[2022-02-07] MEDS: TRAMadol 50 mg Tablet PO (17:06)
== END 2022-02-07 17:08 | disposition home or self-care (01) ==
PROVIDERS: Emergency Medicine; Emergency Provider Nurse Practitioner Family; PCP Registered Nurse
DX: N13.30 Unspecified hydronephrosis (principal); N20.0 Calculus of kidney
CPT/HCPCS: 74176; 80053; 81003; 83690; 85025; 96374; 96375; 96376; 99284; J1170; J2405

== ENCOUNTER 2022-08-03 07:36 | Outpatient (CLI) | payer OTHER, SELFPAY ==
--- NOTE | 2022-08-03 07:48 | XR_ITS ---
WS: [id number] KUB, AP view, 08/03/2022 Clinical Data: stones Comparison: None. Findings: No abnormal intraabdominal masses or calcifications are seen. There is no dilatated small bowel or ev idence of obstruction. There is a large amount of fecal material in the colon. There are surgical clips in the right lower q uadrant and also in the true pelvis. XR/XR KUB [id number] Impression: Large amount of fecal material in the colon.
== END 2022-08-03 07:37 | disposition home or self-care (01) ==
LOC: RAD 07:38
PROVIDERS: PCP Registered Nurse; Visit Provider Urology
DX: N20.0 Calculus of kidney (principal)
CPT/HCPCS: 74018; 81003